=== PATIENT | female | born 2000 | race American Indian/Alaskan Native ===

== ENCOUNTER 2018-07-12 11:19 | Emergency (ER) | payer SELFPAY ==
--- NOTE | 2018-07-12 12:25 | ER ---
Nurse's Notes [facility] Name: Yessica Polk Age: 17 yrs Sex: Female : 2000 Arrival Date: 07/12/2018 Time: 11:23 Bed Waiting Private MD: Diagnosis: Presentation: 07/12 11:39 Presenting complaint: Patient states: having swelling to ankles for 3 days, eyes have iw been hurting, and has headaches sometimes. Transition of care: patient was not received from another setting of care. Onset of symptoms was July 09, 2018. Risk Assessment: Do you want to hurt yourself or someone else? Patient reports no desire to harm self or others. Initial Sepsis Screen: Does the patient meet any 2 criteria? No. Patient's initial sepsis screen is negative. Does the patient have a suspected source of infection? No. Patient's initial sepsis screen is negative. Care prior to arrival: None. 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 - Social history:: Smoking status: Patient/guardian denies using tobacco. - Ebola Screening: : Patient negative for fever greater than or equal to 101.5 degrees Fahrenheit, and additional compatible Ebola Virus Disease symptoms Patient denies exposure to infectious person Patient denies travel to an Ebola-affected area in the 21 days before illness onset No symptoms or risks identified at this time. Vital Signs: 11:40 BP 132 / 79; Pulse 93; Resp 16; Temp 98.2; Pulse Ox 99% on R/A; Weight 81.65 kg; Height iw 5 ft. 4 in. (162.56 cm); Pain 0/10; 11:40 Body Mass Index 30.90 (81.65 kg, 162.56 cm) ED Course: 11:23 Patient arrived in ED. ss4 11:38 [facility] snw 11:38 Chirag Yadav MD is Attending Physician. snw 11:40 Triage completed. iw 11:41 Arm band placed on. iw 12:15 Neo Garcia LVN is Primary Nurse. em Administered Medications: No medications were administered Outcome: 12:24 Eloped from waiting room, before seeing physician Time discovered patient gone: July 122018 at 12:25 12:25 Patient left the ED. em Signatures: Netta Davis, CORPORATE TREASURY ANALYST-C CORPORATE TREASURY ANALYST-Csnw Neo Garcia LVN LVN em Ivon Liu, RN RN Jenn Saunders ss4
[2018-07-12 12:30] VITALS: BP 132/79; TEMP 98.2; O2SAT 99
== END 2018-07-12 12:25 | disposition left against medical advice (07) ==
LOC: ER 11:19
DX: M25.472 Effusion, left ankle (principal); M25.471 Effusion, right ankle; Z53.21 Procedure and treatment not carried out due to patient leaving prior to being seen by health care provider
CPT/HCPCS: 99281

== ENCOUNTER 2020-06-29 18:55 | Emergency (ER) | payer OTHER, SELFPAY ==
--- NOTE | 2020-06-29 21:33 | EDPHYS ---
Physician Documentation [facility] Name: Yessica Polk Age: 19 yrs Sex: Female : 2000 Arrival Date: 06/29/2020 Time: 18:58 Bed 7 Private MD: ED Physician Venu Skaggs HPI: 06/29 20:13 This 19 yrs old Other Female presents to ER via Ambulatory with complaints of Foot rn Swelling. 20:13 The patient presents with pain, swelling. The complaints affect the left and right leg. rn Context: resulted from an unknown cause. Onset: The symptoms/episode began/occurred "months ago". Modifying factors: The symptoms are alleviated by nothing. the symptoms are aggravated by nothing. Associated signs and symptoms: Pertinent positives: swelling, Pertinent negatives fever, weakness. Severity of symptoms: At their worst the symptoms were moderate, in the emergency department the symptoms are unchanged. The patient has not experienced similar symptoms in the past. The patient has not recently seen a physician. Reports , has been experiencing leg swelling since before , got worse with , does not know how far along she is. No fever or rash. + swelling to both legs equally and cramping when stretches. NO trauma.. 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 Flu vaccine is not up to date. - Social history:: Smoking status: Patient denies any tobacco usage or history of. - Family history:: not pertinent. - Hospitalizations: : No recent hospitalization is reported. ROS: 20:13 Constitutional: Negative for fever, chills, and weight loss, Eyes: Negative for injury, rn pain, redness, and discharge, Neck: Negative for injury, pain, and swelling, Cardiovascular: Negative for chest pain, palpitations Respiratory: Negative for shortness of breath, cough, wheezing, and pleuritic chest pain, Abdomen/GI: Negative for abdominal pain, nausea, vomiting, diarrhea, and constipation, MS/Extremity: Negative for injury and deformity, Skin: Negative for injury, rash, and discoloration, Neuro: Negative for headache, weakness, numbness, tingling, and seizure. Exam: 20:13 Constitutional: This is a well developed, well nourished patient who is awake, alert, rn and in no acute distress. Head/Face: Normocephalic, atraumatic. Eyes: Periorbital areas with no swelling, redness, or edema. Cardiovascular: Regular rate and rhythm. No pulse deficits. Respiratory: No increased work of breathing, no retractions or nasal flaring. Skin: Warm, dry with normal turgor. Normal color with no rashes, no lesions, and no evidence of cellulitis. MS/ Extremity: Pulses equal, no cyanosis. Neurovascular intact. Full, normal range of motion. Equal circumference. Non-pitting edema bilateral lower ext. Neuro: Awake and alert, GCS 15, oriented to person, place, time, and situation. Cranial nerves II-XII grossly intact. Motor strength 5/5 in all extremities. Sensory grossly intact. Normal gait. Vital Signs: 19:17 BP 121 / 68; Pulse 91; Resp 18 S; Temp 97.5(TE); Pulse Ox 99% on R/A; Height 5 ft. 4 ca1 in. (162.56 cm) (R); Pain 0/10; 22:00 BP 118 / 70; Pulse 88; Resp 18; Pulse Ox 99% on R/A; wh Procedures: 21:42 Ultrasound: Type: OB, performed by the emergency department physician, FHT 108, good rn movement, good fluid, images shown to mother.. MDM: 19:55 Patient medically screened. rn 21:30 Differential diagnosis: edema of . Data reviewed: vital signs, nurses notes, rn radiologic studies, doppler, and as a result, I will discharge patient. Counseling: I had a detailed discussion with the patient and/or guardian regarding: the historical points, exam findings, and any diagnostic results supporting the discharge/admit diagnosis, radiology results, the need for outpatient follow up, to return to the emergency department if symptoms worsen or persist or if there are any questions or concerns that arise at home. Special discussion: I discussed with the patient/guardian in detail that at this point there is no indication for admission to the hospital. It is understood, however, that if the symptoms persist or worsen the patient needs to return immediately for re-evaluation. 06/29 20:10 Order name: Extrem Venous W Compression Con US rn 06/29 20:10 Order name: FHT's; Complete Time: 21:53 rn Administered Medications: No medications were administered Disposition: 06/29/20 21:32 Discharged to Home. Impression: Edema, unspecified, related conditions, unspecified. - Condition is Stable. - Discharge Instructions: Edema, Peripheral Edema. - Medication Reconciliation Form, Thank You Letter, Antibiotic Education, Prescription Opioid Use form. - Follow up: Private Physician; When: As needed; Reason: Recheck today's complaints, Re-evaluation by your physician. - Problem is new. - Symptoms have improved. Signatures: Dispatcher [employer] EDMS Venu Skaggs MD MD rn Habalo, Winsy, RN RN wh Acob, Cheryl, RN RN [facility] Corrections: (The following items were deleted from the chart) 22:29 21:32 06/29/2020 21:32 Discharged to Home. Impression: Edema, unspecified; wh related conditions, unspecified. Condition is Stable. Forms are Medication Reconciliation Form, Thank You Letter, Antibiotic Education, Prescription Opioid Use. Follow up: Private Physician; When: As needed; Reason: Recheck today's complaints, Re-evaluation by your physician. Problem is new. Symptoms have improved. rn
--- NOTE | 2020-06-29 21:33 | ER ---
Nurse's Notes [facility] Name: Yessica Polk Age: 19 yrs Sex: Female : 2000 Arrival Date: 06/29/2020 Time: 18:58 Bed 7 Private MD: Diagnosis: Edema, unspecified; related conditions, unspecified Presentation: 06/29 19:17 Chief complaint: Patient states: 7-8 mos , garland leg swelling since start of ca1 . It hurts every time I stretched, I get cramps. Haven't had OB visit since because of having problems with medicaid. Coronavirus screen: Client denies travel out of the [place] in the last 14 days. At this time, the client does not indicate any symptoms associated with coronavirus-19. Ebola Screen: Patient negative for fever greater than or equal to 101.5 degrees Fahrenheit, and additional compatible Ebola Virus Disease symptoms Patient denies exposure to infectious person. Patient denies travel to an Ebola-affected area in the 21 days before illness onset. No symptoms or risks identified at this time. Initial Sepsis Screen: Does the patient meet any 2 criteria? No. Patient's initial sepsis screen is negative. Does the patient have a suspected source of infection? No. Patient's initial sepsis screen is negative. Risk Assessment: Do you want to hurt yourself or someone else? Patient reports no desire to harm self or others. Onset of symptoms was June 29, 2020. 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 Flu vaccine is not up to date. - Social history:: Smoking status: Patient denies any tobacco usage or history of. - Family history:: not pertinent. - Hospitalizations: : No recent hospitalization is reported. Screenin:00 Abuse screen: Denies threats or abuse. Denies injuries from another. Nutritional wh screening: No deficits noted. Tuberculosis screening: No symptoms or risk factors identified. Fall Risk None identified. Assessment: 20:00 General: Appears in no apparent distress. Behavior is calm, cooperative, appropriate wh for age. Pain: Denies pain. Neuro: Level of Consciousness is awake, alert, obeys commands, Oriented to person, place, time, situation, Appropriate for age. Cardiovascular: Heart tones S1 S2. Cardiovascular: Edema pitting to right ankle and left ankle. Respiratory: Airway is patent Respiratory effort is even, unlabored, Respiratory pattern is regular, symmetrical, Breath sounds are clear bilaterally. GI: Abdomen is round. : No signs and/or symptoms were reported regarding the genitourinary system. EENT: No signs and/or symptoms were reported regarding the EENT system. Derm: Skin is intact, is healthy with good turgor, Skin is pink, warm \T\ dry. normal. Musculoskeletal: Circulation, motion, and sensation intact. 22:00 Reassessment: Patient appears in no apparent distress at this time. No changes from previously documented assessment. Patient and/or family updated on plan of care and expected duration. Pain level reassessed. Patient is alert, oriented x 3, equal unlabored respirations, skin warm/dry/pink. Vital Signs: 19:17 BP 121 / 68; Pulse 91; Resp 18 S; Temp 97.5(TE); Pulse Ox 99% on R/A; Height 5 ft. 4 ca1 in. (162.56 cm) (R); Pain 0/10; 22:00 BP 118 / 70; Pulse 88; Resp 18; Pulse Ox 99% on R/A; ED Course: 18:58 Patient arrived in ED. ds1 19:20 Triage completed. ca1 19:21 Arm band placed on right wrist. ca1 19:55 Venu Skaggs MD is Attending Physician. rn 20:00 Patient has correct armband on for positive identification. Bed in low position. Call light in reach. Side rails up X 1. Pulse ox on. NIBP on. 20:08 Dante Murguia, RN is Primary Nurse. jb4 21:28 Extrem Venous W Compression [place] US In Process Unspecified. EDMS 22:15 No provider procedures requiring assistance completed. Patient did not have IV access during this emergency room visit. Administered Medications: No medications were administered Outcome: 21:32 Discharge ordered by . rn 22:15 Discharged to home ambulatory, with friend. 22:15 Condition: stable 22:15 Discharge instructions given to patient, Instructed on discharge instructions, follow up and referral plans. POC Demonstrated understanding of instructions, follow-up care, POC 22:29 Patient left the ED. Signatures: Dispatcher [employer] EDIL La Domínguez ds1 Venu Skaggs MD MD rn Bryson, James RN RN jb4 Rip Juarez RN RN Acob, Lidia RN RN ca1 Corrections: (The following items were deleted from the chart) 22:24 20:00 Cardiovascular: Edema pitting to left ankle and right ankle [facility]
[2020-06-29 22:56] VITALS: BP 121/68; TEMP 97.5; O2SAT 99
--- NOTE | 2020-06-30 08:15 | RAD REPORT ---
EXAM DESCRIPTION: US - Extrem Venous W Compress Con - 06/29/2020 9:28 pm CLINICAL HISTORY: ;Pain;Swelling Bilateral leg edema and swelling. COMPARISON: No comparisons TECHNIQUE: Real-time sonographic interrogation of the left and right lower extremity deep venous sys tems was performed. FINDINGS: Normal compressibility, flow augmentation, phasic flow and spontaneous flow is identified in both the left and right lower extremity deep venous systems. IMPRESSION: No sonographic evidence of left or right lower extremity deep venous thrombosis.
== END 2020-06-29 22:29 | disposition home or self-care (01) ==
LOC: ER 18:55
DX: O12.03 Gestational edema, third trimester (principal); Z3A.00 Weeks of gestation of pregnancy not specified
CPT/HCPCS: 93970; 99283

== ENCOUNTER 2020-09-06 09:16 | Emergency (ER) | payer SELFPAY ==
--- OUTSIDE RECORDS SUMMARY | 2020-09-06 09:20 | XMS REPORT | Continuity of Care Document ---
:2000 Author Organization [facility] t Address [address] [place] [address] Care Team Providers Name Role Phone Asked, Pcp Primary Care Physician Unavailable Yoel Art MD Attending Clinician Provider Attending Clinician Unavailable MD YOEL ART Attending Clinician Unavailable Ultrasound Attending Clinician Unavailable Katrina Belle Attending Clinician RUBENS Admitting Clinician Unavailable MD YOEL ART Admitting Clinician Unavailable Payers Payer Name Policy Policy Effective Expiration Source Type Number Date Date [facility] MEDICAID[place]ALTH[place]ARE [id number] 2020 [facility] STAR 00:00:00 Sikhism [id number] 2020-Present O Problems Condition Condition Condition Status Onset Resolution Last Treating Co mments Source Name Details Category Date Date Treatment Clinician Date Vaginal Vaginal Disease Active [place] delivery delivery 07-20 Method i 00:00: st 00 Outcome of Outcome of Disease Active [place] delivery, delivery, 07-20 Meth lexi single single 00:00: st liveborn liveborn 00 38 weeks 38 weeks Disease Active [place] gestation gestation 07-20 Meth lexi of of 00:00: st 00 Allergies, Adverse Reactions, Alerts This patient has no known allergies or adverse reactions. Family History Family Member Diagnosis Comments Start Date Stop Date Source Other No Known Problems Vickey Sikhism Paternal grandfather No Known Problems Vickey Sikhism Paternal grandmother No Known Problems Vickey Sikhism Natural sister No Known Problems Curtis carson Sikhism Natural brother No Known Problems Carlin milton Sikhism Natural father No Known Problems Curtis carson Sikhism Maternal grandfather No Known Problems Hurd Sikhism Maternal grandmother No Known Problems Vickey Dillon Natural mother Diabetes [facility] thodist Social History Social Habit Start Date Stop Date Quantity Comments [facility] Drinks [facility] Alcohol Binge Tobacco use and 2020-07-23 2020-07-23 Never used Vickey Acevedo ethodist exposure 00:00:00 00:00:00 Alcohol intake 2020-07-23 2020-07-23 Lifetime Vickey Gomes thodist 00:00:00 00:00:00 non-drinker (finding) History SDOH 2020-07-20 2020-07-20 1 [place] Meth odist Alcohol Frequency 00:00:00 00:00:00 Sex Ass[birth year] At [birth year] Vickey Acevedo ethodist 00:00:00 00:00:00 Smoking Status Start Date Stop Date Source Never smoker Vickey Kathleenis t Medications Ordered Filled Start Stop Current Ordering Indication Dosage Frequency Signature Comments Components Source Medication Medication Date Date Medication? Clinician (SIG) Name Name ibuprofen 2020- No 800mg Q8H Take 1 [place] (ADVIL) 800 07-20 tablet Metho di MG tablet 00:00: 23:59 ([address] 00 :00 total) by mouth every 8 (eight) hours as needed for mild pain or moderate pain for up to 30 days. docusate 2020- No 100mg Q.5D Take 1 [place] sodium 07-20 capsule Methodi (Colace) 00:00: 23:59 ([address] 100 MG 00 :00 total) by capsule mouth 2 (two) times a day for 30 days. ondansetron 2020- No 8mg Q8H Take 1 Curtis ston ODT 07-20- tablet (8 Methodi (ZOFRAN-ODT 00:00: 23:59 mg total) st ) 8 MG 00 :00 by mouth disintegrat every 8 ing tablet (eight) hours as needed for nausea or vomiting for up to 30 days. ferrous 2020- No 325mg QD Take 1 [place] sulfate 325 07-20 tablet Metho di (65 FE) MG 00:00: 23:59 ([address] EC tablet 00 :00 total) by mouth daily with breakfast for 30 days. Vital Signs Vital Name Observation Time Observation Value Comments Source Systolic blood 2020-07-21 08:10:00 118 mm[Hg] Victor Manuel n Sikhism pressure Diastolic blood 2020-07-21 08:10:00 56 mm[Hg] Nannette on Sikhism pressure Heart rate 2020-07-21 08:10:00 63 /min Vickey Dillon Body temperature 2020-07-21 08:10:00 37 Majo Bernadette ton Sikhism Respiratory rate 2020-07-21 08:10:00 18 /min Bernadette Kathleenist Oxygen saturation in 2020-07-21 08:10:00 99 /min Vickey Dillon Arterial blood by Pulse oximetry Body height 2020-07-19 23:17:00 162.6 cm Vickey Dillon Body weight 2020-07-19 23:17:00 58.968 kg Vickey Dillon BMI 2020-07-19 23:17:00 22.31 kg/m2 Vickey Dillon Procedures Procedure Date / Time Performed Performing Clinician Sour e COVID-19 QUALITATIVE 2020-07-20 00:17:00 Conrad Art RT-PCR Yoel HC COMPLETE BLD COUNT 2020-07-20 00:17:00 Conrad Artist W/AUTO DIFF Yoel HEPATITIS B SURFACE 2020-07-20 00:17:00 Conrad Art ANTIGEN Yoel SYPHILIS TREPONEMA 2020-07-20 00:17:00 Conrad Art SCREEN WITH RPR Yoel CONFIRMATION (REVERSE ALGORITHM) TYPE AND SCREEN, 2020-07-20 00:17:00 Conrad Art Me thodist OBSTETRICAL PATIENT Yoel RUBELLA AB IGG 2020-07-20 00:17:00 Conrad Art Met kolby Diallo Encounters Start End Encounter Admission Attending Care Care Encounter Source Date/Time Date/Time Type Type Clinicians Facility Department ID 2020-07-19 2020-07-21 Inpatient RUBENS [facility] [id number] Vickey 00:00:00 00:00:00 CONRAD [address] 2020-07-13 2020-07-13 Kettle Room Helper Ultrasound, [facility] [id number] 08:14:46 09:29:46 Visit [facility] TARIFF SUPERVISOR [id number] REGIONAL [id number] MATERNAL [id number] & CHILD 369 [facility] 2020-07-13 2020-07-13 Case Bhavin SANAM [id number] 00:00:00 00:00:00 Management Roshunda R TARIFF SUPERVISOR [id number] REGIONAL [id number] MATERNAL [id number] & CHILD 107 [facility] 2020-07-13 2020-07-13 [facility] Elmer Delcid [facility] [id number] 00:00:00 00:00:00 Roshunda R TARIFF SUPERVISOR [id number] REGIONAL [id number] MATERNAL [id number] & CHILD 107 [facility] 2020-07-12 2020-07-12 Routine Bhavin [facility] [id number] 12:54:42 13:12:23 Roshunda R TARIFF SUPERVISOR [id number] Visit REGIONAL [id number] MATERNAL [id number] & CHILD 107 [facility] 2020-07-10 2020-07-10 Telephone SANAM Delcid [id number] 00:00:00 00:00:00 Roshunda R TARIFF SUPERVISOR [id number] REGIONAL [id number] MATERNAL [id number] & CHILD 107 [facility] 2020-07-06 2020-07-06 [place] Bhavin [facility] [id number] 00:00:00 00:00:00 Roshunda R TARIFF SUPERVISOR [id number] REGIONAL [id number] MATERNAL [id number] & CHILD 107 [facility] 2020-07-05 2020-07-05 Initial Bhavin [facility] [id number] 13:45:34 15:07:20 Roshunda R TARIFF SUPERVISOR [id number] Visit REGIONAL [id number] MATERNAL [id number] & CHILD [address] [place] [address] Results Test Description Test Time Test Comments Results Result Comments Source Type and screen, obstetrical patient 2020-07-20 01:54:00 Test Item Value Reference Range Interpretation Comme nts ABO grouping (test code = 883-9) O Rh type (test code = 00255-3) POS Antibody screen (gel) (test code = 890-4) NEG Vickey [id number]-7 (COVID-19) RNA [Presence] in Respiratory specimen by ARUN with probe [id number] 01:35:10 Test Item Value Reference Range Interpretation Comments SARS-CoV-2 (COVID-19) RNA Not detected Not-Detected [Presence] in Respiratory specimen by ARUN with probe detection (test code = 86748-9) Whether patient is employed in a healthcare setting (test code = 55975-3) Whether the patient has symptoms related to condition of interest (test code = 92530-9) Patient was hospitalized because of this condition (test code = 15791-1) Whether the patient was admitted to intensive care unit (ICU) for condition of interest (test code = 02543-1) Whether patient resides in a congregate care setting (test code = 46717-6)
[2020-09-06] MEDS ORDERED: ACETAMINOPHEN 500 MG TAB ONE (11:04)
--- NOTE | 2020-09-06 12:12 | ER ---
Nurse's Notes [facility] Name: Yessica Polk Age: 19 yrs Sex: Female : 2000 Arrival Date: 09/06/2020 Time: 09:18 Bed 14 Private MD: Diagnosis: Acute pharyngitis, unspecified Presentation: 09/06 09:31 Chief complaint: Patient states: Headache, cough, sneezing,nasal congestion, and ph nausea, symptoms began . Coronavirus screen: congestion, headache, nausea, sore throat, Client presents with at least one sign or symptom that may indicate coronavirus-19. Standard/surgical mask placed on the client. Provider contacted for isolation considerations. Ebola Screen: No symptoms or risks identified at this time. Initial Sepsis Screen: Does the patient meet any 2 criteria? No. Patient's initial sepsis screen is negative. Does the patient have a suspected source of infection? No. Patient's initial sepsis screen is negative. Risk Assessment: Do you want to hurt yourself or someone else? Patient reports no desire to harm self or others. Onset of symptoms was September 06, 2020. 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 - Social history:: Smoking status: Patient denies any tobacco usage or history of. Screenin:33 Abuse screen: Denies threats or abuse. Denies injuries from another. Nutritional ph screening: No deficits noted. Tuberculosis screening: No symptoms or risk factors identified. Fall Risk None identified. Assessment: 09:46 General: Appears in no apparent distress. comfortable, Behavior is calm, cooperative, ph appropriate for age. Pain: Complains of pain in head. Neuro: Level of Consciousness is awake, alert, obeys commands, Oriented to person, place, time, situation, Reports headache. Cardiovascular: Capillary refill < 3 seconds in bilateral fingers. Respiratory: Reports cough that is Airway is patent Respiratory effort is even, unlabored, Denies shortness of breath. GI: Reports nausea. EENT: Reports nasal congestion. Derm: Skin is intact, is healthy with good turgor, Skin is pink, warm \T\ dry. Musculoskeletal: Circulation, motion, and sensation intact. Range of motion: intact in all extremities. Vital Signs: 09:31 BP 123 / 75; Pulse 91; Resp 18; Temp 98.2; Pulse Ox 99% on R/A; Weight 83.46 kg; Height ph 5 ft. 4 in. (162.56 cm); 09:31 Body Mass Index 31.58 (83.46 kg, 162.56 cm) ph ED Course: 09:18 Patient arrived in ED. mr 09:20 Josh Wolfe PA is PHCP. [facility] 09:20 Jaycob Mg MD is Attending Physician. [facility] 09:31 Cielo Glaan, RN is Primary Nurse. ph 09:33 Triage completed. ph 09:33 Arm band placed on Patient placed in an exam room. ph 09:34 Patient has correct armband on for positive identification. Bed in low position. Call light in reach. Side rails up X 1. Pulse ox on. NIBP on. Door closed. Noise minimized. Warm blanket given. 09:47 Strep Sent. ph 09:47 Flu Sent. ph 12:30 No provider procedures requiring assistance completed. Patient did not have IV access ld1 during this emergency room visit. Administered Medications: 12:20 Drug: Decadron (dexamethasone) 10 mg Route: IM; Site: right deltoid; ll1 12:29 Follow up: Response: No adverse reaction ll1 Outcome: 12:11 Discharge ordered by . [facility] 12:30 Discharged to home ambulatory. ld1 12:30 Condition: stable 12:30 Condition: stable 12:30 Discharge instructions given to patient, Instructed on discharge instructions, follow up and referral plans. medication usage, Demonstrated understanding of instructions, follow-up care, medications, Prescriptions given X 1. 12:30 Patient left the ED. ld1 Signatures: Josh Wolfe PA PA jmm Rivera, Mary Cielo Galan, RN LES ph Clark Toledo RN RN ll1 Leena French RN RN ld1 Corrections: (The following items were deleted from the chart) 10:44 09:47 CORONAVIRUS+MR.LAB.BRZ drawn and sent. ph EDMS
--- NOTE | 2020-09-06 12:12 | EDPHYS ---
Physician Documentation [facility] Name: Yessica Polk Age: 19 yrs Sex: Female : 2000 Arrival Date: 09/06/2020 Time: 09:18 Bed 14 Private MD: ED Physician Jaycob Mg HPI: 09/06 09:31 This 19 yrs old Other Female presents to ER via Unassigned with complaints of Flu jmm Symptoms. 09:31 Onset: The symptoms/episode began/occurred gradually, 6 day(s) ago. Modifying factors: jmm The symptoms are alleviated by nothing. the symptoms are aggravated by nothing. Associated signs and symptoms: Pertinent positives: fever, rhinorrhea, sore throat, vomiting. It is unknown whether or not the patient has had similar symptoms in the past. This is a 19-year-old female no chronic medical conditions presents emerged part with complaints of cough, congestion, sore throat beginning this past . Patient states worse symptoms are headache and sinus congestion. Patient is not vaccinated for COVID-19.. 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 - Social history:: Smoking status: Patient denies any tobacco usage or history of. ROS: 09:31 Constitutional: Positive for body aches, fever. jmm 09:31 ENT: Positive for sinus congestion, sore throat. 09:31 Neuro: Positive for headache. 09:31 All other systems are negative. Exam: 09:31 Constitutional: This is a well developed, well nourished patient who is awake, alert, jmm and in no acute distress. Head/Face: atraumatic. Eyes: EOMI, no conjunctival erythema appreciated 09:31 Neck: Trachea midline, Supple Chest/axilla: Normal chest wall appearance and motion. Cardiovascular: Regular rate and rhythm. No edema appreciated Respiratory: Normal respirations, no respiratory distress appreciated Abdomen/GI: Non distended, soft Back: Normal ROM Skin: General appearance color normal MS/ Extremity: Moves all extremities, no obvious deformities appreciated, no edema noted to the lower extremities Neuro: Awake and alert, normal gait 09:31 ENT: Posterior pharynx: erythema, that is mild. Vital Signs: 09:31 BP 123 / 75; Pulse 91; Resp 18; Temp 98.2; Pulse Ox 99% on R/A; Weight 83.46 kg; Height ph 5 ft. 4 in. (162.56 cm); 09:31 Body Mass Index 31.58 (83.46 kg, 162.56 cm) ph MDM: 09:30 Patient medically screened. [facility] 12:11 Data reviewed: vital signs, nurses notes. Counseling: I had a detailed discussion with [facility] the patient and/or guardian regarding: the historical points, exam findings, and any diagnostic results supporting the discharge/admit diagnosis, lab results, the need for outpatient follow up, to return to the emergency department if symptoms worsen or persist or if there are any questions or concerns that arise at home. ED course: Patient is alert and nontoxic in appearance and emergency department. I do not appreciate any respiratory distress. Will treat with oral antibiotics for acute pharyngitis. Patient is otherwise given strict return precautions. Patient understood and agrees to plan of care.. 09/06 09:31 Order name: Flu; Complete Time: 11:04 [facility] 09/06 09:31 Order name: Strep; Complete Time: 10:56 [facility] 09/06 10:56 Order name: Throat Culture [facility] 09/06 11:39 Order name: SARS-COV-2 RT PCR; Complete Time: 11:53 [facility] Administered Medications: 12:20 Drug: Decadron (dexamethasone) 10 mg Route: IM; Site: right deltoid; ll1 12:29 Follow up: Response: No adverse reaction ll1 Disposition Summary: 09/06/20 12:11 Discharge Ordered Location: Home [facility] Condition: Stable [facility] Diagnosis - Acute pharyngitis, unspecified [facility] Followup: [facility] - With: Private Physician - When: 2 - 3 days - Reason: Recheck today's complaints, Continuance of care, Re-evaluation by your physician Discharge Instructions: - Discharge Summary Sheet [facility] - Pharyngitis [facility] Forms: - Medication Reconciliation Form [facility] - Thank You Letter [facility] - Antibiotic Education [facility] - Prescription Opioid Use [facility] - Work release form Prescriptions: - cefdinir 300 mg Oral capsule - take 1 capsule by ORAL route every 12 hours; 20 capsule; Refills: 0, Product jmarchana Selection Permitted 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 EDMS EDMS
[2020-09-06] MEDS ORDERED: dexAMETHasone 10 MG/ML VIAL ONE (12:45)
[2020-09-06 13:02] VITALS: BP 123/75; TEMP 98.2; O2SAT 99
== END 2020-09-06 12:30 | disposition home or self-care (01) ==
LOC: ER 09:16
DX: J02.9 Acute pharyngitis, unspecified (principal); Z20.822 Contact with and (suspected) exposure to COVID-19
CPT/HCPCS: 87070; 87081; 87804; 96372; 99284; J1100; U0003

== ENCOUNTER 2021-07-09 23:18 | Emergency (ER) | payer OTHER ==
--- OUTSIDE RECORDS SUMMARY | 2021-07-09 23:21 | XMS REPORT | Continuity of Care Document ---
:2000 Author Organization [facility] t Address [address] [place] [address] Care Team Providers Name Role Phone Katrina DELCID Attending Clinician Unavailable RUBENS Attending Clinician Unavailable MD VINNY ART Attending Clinician Unavailable Ultrasound Attending Clinician Unavailable Moises NAVARRO Attending Clinician Katrina Belle Attending Clinician Doctor Unassigned, Name Attending Clinician Unavailable RUBENS Admitting Clinician Unavailable MD VINNY ART Admitting Clinician Unavailable Payers Payer Name Policy Type Policy Number Effective Date Expiration Date S jerry MEDICAID PENDING PENDING 2020 00:00:00 MEDICAID [facility] [id number] 2020 00:00:00 Problems Condition Condition Condition Status Onset Resolution Last Treating Co mments Source Name Details Category Date Date Treatment Clinician Date Supervisio Supervisio Disease Active U nivconnor n of high n of high 5-26 ity of risk risk 00:00: [place] 00 Medi tiarra in third in third Branch trimester trimester Insufficie Insufficie Disease Active 2020- U nivers nt nt 5-19 ity of 00:00: [place] care in care in 00 Medical third third Branch trimester trimester Multiparit Multiparit Disease Active 2020-0 U nivers y y 5-19 ity of 00:00: [place] 00 Medical Branch Pedal Pedal Disease Active 2020- Univers edema edema 5-19 ity of 00:00: [place] 00 Medical Branch Vaginal Vaginal Disease Active Univers discharge discharge 5-19 ity of 00:00: [place] 00 Medical Branch Obesity in Obesity in Disease Active 2020-0 U nivers 5-19 ity of 00:00: [place] 00 Medical [place] BMI BMI Disease Active Univers 35.0-35.9, 35.0-35.9, 5-19 it y of adult adult 00:00: [place] 00 [facility] Family Family Disease Active Overview: Univer s history of history of 3 Formattin ity of genetic genetic 00:00: g of this [place] disorder disorder 00 note Medica l might be Branch different from the original. Patient Brother was born with cleft lip, cleft palatePat ient Cousin has down syndrome Supervisio Supervisio Disease Active U nivers n of n of 305 ity of high-risk high-risk 00:00: [place] [facility] with with Branch insufficie insufficie nt nt care, care, unspecifie unspecifie d d trimester trimester Late Late Disease Active Univers 04-21 ity of care care 00:00: [place] [facility] Maternal Maternal Disease Active Overview: Un jon varicella, varicella, 04-20 Formattin ity of non-immune non-immune 00:00: g of this [place] 00 note Medical might be Branch different from the original. Address in PP UTI in UTI in Disease Active Univers , , 04-20 [place] [address] [place] [address] Allergies, Adverse Reactions, Alerts Allergy Allergy Status Severity Reaction(s) Onset Inactive Treating Comm ents Source Name Type Date Date Clinician NO KNOWN Drug Active Univers ALLERGIE Class ity of S [facility] Social History Social Habit Start Date Stop Date Quantity Comments Source ASSERTION 2019-11-13 University of 00:00:00 [facility] Exposure to Not sure [facility] SARS-CoV-2 [facility] [place] [facility] (event) Branch Tobacco use and 2020-07-12 2020-07-12 Never used Universit y of exposure 00:00:00 00:00:00 [facility] Alcohol intake 2020-07-12 2020-07-12 Current University of 00:00:00 00:00:00 non-drinker of [facility] alcohol Branch (finding) Sex Assigned At [birth year] Universit y of 00:00:00 00:00:00 [place] [facility] Smoking Status Start Date Stop Date Source Never smoker [facility] Medical Branch Medications Ordered Filled Start Stop Current Ordering Indication Dosage Frequency Signature Comments Components Source Medication Medication Date Date Medication? Clinician (SIG) Name Name L. neli/L. Yes Take by Uni vers josé miguel/L. 5-19 mouth. ity of eunice/L. rham 19:24: [place] (AZO 20 Medical COMPLETE Branch FEMININE BALANCE ORAL) L. neil/L. Yes Take by Uni vers josé miguel/L. 5-19 mouth. ity of eunice/L. rham 19:24: [place] (AZO 20 Medical COMPLETE Branch FEMININE BALANCE ORAL) L. neil/L. Yes Take by Uni vers josé miguel/L. 5-19 mouth. ity of eunice/L. rham 19:24: [place] (AZO 20 Medical COMPLETE Branch FEMININE BALANCE ORAL) L. neil/L. Yes Take by Uni vers josé miguel/L. 5-19 mouth. ity of eunice/L. rham 19:24: [place] (AZO 20 Medical COMPLETE Branch FEMININE BALANCE ORAL) L. neil/L. Yes Take by Uni vers josé miguel/L. 5-19 mouth. ity of eunice/L. rham 19:24: [place] (AZO 20 Medical COMPLETE Branch FEMININE BALANCE ORAL) L. neil/L. Yes Take by Uni vers josé miguel/L. 5-19 mouth. ity of eunice/L. rham 19:24: [place] (AZO 20 Medical COMPLETE Branch FEMININE BALANCE ORAL) L. neil/L. Yes Take by Uni vers josé miguel/L. 5-19 mouth. ity of eunice/L. rham 19:24: [place] (AZO 20 Medical COMPLETE Branch FEMININE BALANCE ORAL) L. neil/L. Yes Take by Uni vers josé miguel/L. 5-19 mouth. ity of eunice/L. rham 19:24: [place] (AZO 20 Medical COMPLETE Branch FEMININE BALANCE ORAL) Nitrofurant Yes [id number] 100mg Take 1 Cap Univers oin&Nit. 3-14 by mouth 2 ity o f Macrocryst 00:00: (two) [place] (MACROBID) 00 times Medical 100 mg daily. Branch capsule Nitrofurant 2016-0 Yes [id number] 100mg Take 1 Cap Univers oin&Nit. 3-14 by mouth 2 ity o f Macrocryst 00:00: (two) [place] (MACROBID) 00 times Medical 100 mg daily. Branch capsule Nitrofurant 2015-0 Yes [id number] 100mg Take 1 Cap Univers oin&Nit. 3-14 by mouth 2 ity o f Macrocryst 00:00: (two) [place] (MACROBID) 00 times Medical 100 mg daily. Branch capsule Nitrofurant 2015- Yes [id number] 100mg Take 1 Cap Univers oin&Nit. 3-14 by mouth 2 ity o f Macrocryst 00:00: (two) [place] (MACROBID) 00 times Medical 100 mg daily. Branch capsule Nitrofurant 2015- Yes [id number] 100mg Take 1 Cap Univers oin&Nit. 3-14 by mouth 2 ity o f Macrocryst 00:00: (two) [place] (MACROBID) 00 times Medical 100 mg daily. Branch capsule Nitrofurant Yes [id number] 100mg Take 1 Cap Univers oin&Nit. 3-14 by mouth 2 ity o f Macrocryst 00:00: (two) [place] (MACROBID) 00 times Medical 100 mg daily. Branch capsule Nitrofurant 2015- Yes [id number] 100mg Take 1 Cap Univers oin&Nit. 3-14 by mouth 2 ity o f Macrocryst 00:00: (two) [place] (MACROBID) 00 times Medical 100 mg daily. Branch capsule Nitrofurant 2015- Yes [id number] 100mg Take 1 Cap Univers oin&Nit. 3-14 by mouth 2 ity o f Macrocryst 00:00: (two) [place] (MACROBID) 00 times Medical 100 mg daily. Branch capsule Nitrofurant 2015-0 Yes [id number] 100mg Take 1 Cap Univers oin&Nit. 3-14 by mouth 2 ity o f Macrocryst 00:00: (two) [place] (MACROBID) 00 times Medical 100 mg daily. Branch capsule [id number] 2015- Yes [id number] 1{each} Take 1 Univers Cbn&Gluc-FA 3-02 Each by ity o f -DSS-DHA 00:00: mouth [place] (CITRANATAL 00 daily. Medica l ASSURE) Branch 35-1-50-300 mg Cmpk combo pack [id number] 2015- Yes [id number] 1{each} Take 1 Univers Cbn&Gluc-FA 3-02 Each by ity o f -DSS-DHA 00:00: mouth [place] (CITRANATAL 00 daily. Medica l ASSURE) Branch 35-1-50-300 mg Cmpk combo pack [id number] 2015- Yes [id number] 1{each} Take 1 Univers Cbn&Gluc-FA 3-02 Each by ity o f -DSS-DHA 00:00: mouth [place] (CITRANATAL 00 daily. Medica l ASSURE) Branch 35-1-50-300 mg Cmpk combo pack [id number] 2015- Yes [id number] 1{each} Take 1 Univers Cbn&Gluc-FA 3-02 Each by ity o f -DSS-DHA 00:00: mouth [place] (CITRANATAL 00 daily. Medica l ASSURE) Branch 35-1-50-300 mg Cmpk combo pack [id number] 2015- Yes [id number] 1{each} Take 1 Univers Cbn&Gluc-FA 3-02 Each by ity o f -DSS-DHA 00:00: mouth [place] (CITRANATAL 00 daily. Medica l ASSURE) Branch 35-50-300 mg Cmpk combo pack [id number] 2015- Yes [id number] 1{each} Take 1 Univers Cbn&Gluc-FA 3-02 Each by ity o f -DSS-DHA 00:00: mouth [place] (CITRANATAL 00 daily. Medica l ASSURE) Branch 35-1-50-300 mg Cmpk combo pack [id number] 2015- Yes [id number] 1{each} Take 1 Univers Cbn&Gluc-FA 3-02 Each by ity o f -DSS-DHA 00:00: mouth [place] (CITRANATAL 00 daily. Medica l ASSURE) Branch 35-1-50-300 mg Cmpk combo pack [id number] 2015- Yes [id number] 1{each} Take 1 Univers Cbn&Gluc-FA 3-02 Each by ity o f -DSS-DHA 00:00: mouth [place] (CITRANATAL 00 daily. Medica l ASSURE) Branch 35-1-50-300 mg Cmpk combo pack [id number] 2016-0 Yes [id number] 1{each} Take 1 Univers Cbn&Gluc-FA 3-02 Each by haven zavaleta -DSS-DHA 00:00: mouth [place] (CITRANATAL 00 daily. Medica l ASSURE) [place] 35-1-50-300 mg Cmpk combo pack Immunizations Ordered Filled Immunization Date Status Comments Sour e Immunization Name Name Influenza Virus 2015-04-18 Completed Universit y of Vaccine Quad IM 3+ 00:00:00 [facility] Influenza Virus 2015-04-18 Completed Universit y of Vaccine Quad IM 3+ 00:00:00 [facility] Influenza Virus 2015-04-18 Completed Universit y of Vaccine Quad IM 3+ 00:00:00 [facility] Influenza Virus 2015-04-18 Completed Universit y of Vaccine Quad IM 3+ 00:00:00 [facility] Influenza Virus 2015-04-18 Completed Universit y of Vaccine Quad IM 3+ 00:00:00 [facility] Influenza Virus 2015-04-18 Completed Universit y of Vaccine Quad IM 3+ 00:00:00 [facility] Influenza Virus 2015-04-18 Completed Universit y of Vaccine Quad IM 3+ 00:00:00 [facility] Influenza Virus 2015-04-18 Completed Universit y of Vaccine Quad IM 3+ 00:00:00 [facility] Influenza Virus 2015-04-18 Completed Universit y of Vaccine Quad IM 3+ 00:00:00 [facility] Vital Signs Vital Name Observation Time Observation Value Comments Source Systolic blood 2020-07-12 18:03:00 136 mm[Hg] Univer sity of pressure [facility] Diastolic blood 2020-07-12 18:03:00 82 mm[Hg] Unive rsity of pressure [facility] Heart rate 2020-07-12 18:03:00 86 /min [facility] Body temperature 2020-07-12 18:03:00 36.83 Majo [facility] Respiratory rate 2020-07-12 18:03:00 16 /min [facility] Body height 2020-07-12 18:03:00 162.6 cm [facility] Body weight 2020-07-12 18:03:00 94.257 kg Universi ty of [place] [facility] BMI 2020-07-12 18:03:00 35.67 kg/m2 Universi ty of [place] [facility] Systolic blood 2020-07-12 18:03:00 136 mm[Hg] Univer sity of pressure [place] [facility] Diastolic blood 2020-07-12 18:03:00 82 mm[Hg] Unive rsity of pressure [place] [facility] Heart rate 2020-07-12 18:03:00 86 /min Universi ty of [place] [facility] Body temperature 2020-07-12 18:03:00 36.83 Majo Univ ersity of [place] [facility] Respiratory rate 2020-07-12 18:03:00 16 /min Univ ersity of [place] [facility] Body height 2020-07-12 18:03:00 162.6 cm Universi ty of [place] [facility] Body weight 2020-07-12 18:03:00 94.257 kg Universi ty of [place] [facility] BMI 2020-07-12 18:03:00 35.67 kg/m2 Universi ty of [place] [facility] Systolic blood 2020-07-05 19:08:00 116 mm[Hg] Univer sity of pressure [place] [facility] Diastolic blood 2020-07-05 19:08:00 75 mm[Hg] Unive rsity of pressure [place] [facility] Heart rate 2020-07-05 19:08:00 89 /min Universi ty [facility] [place] [facility] Body temperature 2020-07-05 19:08:00 36.61 Majo Univ ersity of [place] [facility] Respiratory rate 2020-07-05 19:08:00 16 /min Univ ersity of [place] [facility] Body height 2020-07-05 19:08:00 162.6 cm Universi ty of [place] [facility] Body weight 2020-07-05 19:08:00 94.348 kg Universi ty of [place] [facility] BMI 2020-07-05 19:08:00 35.70 kg/m2 Universi ty of [place] [facility] Systolic blood 2020-07-05 19:08:00 116 mm[Hg] Univer sity of pressure [place] [facility] Diastolic blood 2020-07-05 19:08:00 75 mm[Hg] Unive rsity of pressure [place] [facility] Heart rate 2020-07-05 19:08:00 89 /min [facility] Body temperature 2020-07-05 19:08:00 36.61 Majo [facility] Respiratory rate 2020-07-05 19:08:00 16 /min [facility] Body height 2020-07-05 19:08:00 162.6 cm [facility] Body weight 2020-07-05 19:08:00 94.348 kg [facility] BMI 2020-07-05 19:08:00 35.70 kg/m2 [facility] Procedures Procedure Date / Time Performed Performing Clinician Sourc e POCT URINALYSIS 2020-07-12 18:06:00 Jai Delcid [facility] GLUCOSE 1 HOUR POST 2020-07-05 20:53:00 [facility] CBC WITH DIFF 2020-07-05 20:53:00 Jai Delcid [facility] RUBELLA SCREEN IGG 2020-07-05 20:53:00 Jai Delcid [facility] VZV ANTIBODY SCREEN 2020-07-05 20:53:00 [facility] HEPATITIS B SURFACE 2020-07-05 20:53:00 [facility] ANTIGEN [facility] GC & CHLAMYDIA 2020-07-05 20:53:00 Jai Delcid [facility] AMPLIFIED ASSAY [facility] HIV 1/2 AG-AB WITH 2020-07-05 20:53:00 Jai Delcid [facility] REFLEX [facility] GALV ONLY - SYPHILIS 2020-07-05 20:53:00 Jai Delcid [facility] IGG/IGM [facility] HB ABO GROUPING 2020-07-05 20:30:00 Jai Delcid [facility] POCT URINALYSIS W/O 2020-07-05 19:11:00 [facility] SPECIFIC GRAVITY [facility] POCT TEST 2020-07-05 19:10:[address] [facility] ASSIGNMENT OF BENEFITS 2020-07-05 18:00:51 Doctor Unassigned, No [facility] Encounters Start End Encounter Admission Attending Care Care Encounter Source Date/Time Date/Time Type Type Clinicians Facility Department ID 2020-08-02 2020-08-02 Outpatient Katrina DELCID [facility] [id number] Univers 10:45:00 10:45:00 JAI [id number] ity o f [facility] 2020-08-02 2020-08-02 Outpatient Katrina DELCID [facility] [id number] Univers 10:45:00 10:45:00 JAI han [facility] 2020-07-27 2020-07-27 Outpatient P [facility] [id number] Univers 13:00:00 13:00:00 [id number] [facility] 2020-07-19 2020-07-21 Inpatient [facility] [id number] [place] [address] 00:00:00 00:00:00 WILIAN [address] 2020-07-19 2020-07-19 Outpatient Katrina DELCID [facility] [id number] Univers 13:45:00 13:45:00 JAI [id number] haven o [facility] 2020-07-19 2020-07-19 Outpatient Katrina DELCID [facility] [id number] Univers 13:45:00 13:45:00 JAI han [facility] 2020-07-13 2020-07-13 Customer Energy Specialist Ultrasound, [facility] [id number] 08:14:46 09:29:46 Visit Ang-m CONFIGURATION RELEASE MANAGER [id number] [facility] [id number] MATERNAL [id number] & CHILD [address] [place] [address] 2020-07-13 2020-07-13 Customer Energy Specialist Ultrasound, [facility] 1.2 .[id number] [facility] 08:14:46 09:29:46 Visit Radha De Leon CONFIGURATION RELEASE MANAGER [id number] ity of REGIONAL [id number] Pierre as MATERNAL [id number] Med ical & CHILD 369 [facility] 2020-07-13 2020-07-13 Outpatient R [facility] [id number] Univers 08:00:00 08:00:00 [id number] ity [facility] 2020-07-13 2020-07-13 Outpatient P [facility] [id number] Univers 08:00:00 08:00:00 ity [facility] 2020-07-13 2020-07-13 Outpatient P [facility] [id number] Univers 08:00:00 08:00:00 ity [facility] 2020-07-13 2020-07-13 SANAM Rose [id number] Univers 00:00:00 00:00:00 Roshunda R CONFIGURATION RELEASE MANAGER [id number] ity of REGIONAL [id number] Pierre as MATERNAL [id number] Med ical & CHILD [address] [place] [address] 2020-07-13 2020-07-13 Case SANAM Delcid [id number] 00:00:00 00:00:00 Management Roshunda R CONFIGURATION RELEASE MANAGER 350.1.13.10 REGIONAL 4.2.7.2.686 MATERNAL [id number] & CHILD [address] [place] [address] 2020-07-13 2020-07-13 SANAM Rose [id number] 00:00:00 00:00:00 Roshunda R CONFIGURATION RELEASE MANAGER 350.1.13.10 REGIONAL 4.2.7.2.686 MATERNAL [id number] & CHILD 107 [facility] 2020-07-13 2020-07-13 SANAM Cabrera [id number] Univers 00:00:00 00:00:00 Management Roshunda R CONFIGURATION RELEASE MANAGER 350.1.13.10 ity of REGIONAL 4.2.7.2.686 Pierre as MATERNAL [id number] Med ical & CHILD 107 [facility] 2020-07-12 2020-07-12 Enedina Finneye, [facility] [id number] Univers 12:54:42 13:12:23 Roshunda R CONFIGURATION RELEASE MANAGER 350.1.13.10 ity of Visit REGIONAL 4.2.7.2.686 Pierre as MATERNAL [id number] [facility] ical & CHILD [address] [place] [address] 2020-07-12 2020-07-12 Routine Delcid, [facility] [id number] 12:54:42 13:12:23 Roshunda R CONFIGURATION RELEASE MANAGER 350.1.13.10 Visit REGIONAL 4.2.7.2.686 MATERNAL [id number] & CHILD [address] [place] [address] 2020-07-12 2020-07-12 Outpatient R VEENA [facility] [id number] Univers 12:45:00 12:45:[address] [facility] 2020-07-10 2020-07-10 Telephone Veena [facility] [id number] Univers 00:00:00 00:00:00 Roshunda R CONFIGURATION RELEASE MANAGER 350.1.13.10 ity of REGIONAL [id number] Pierre as MATERNAL [id number] [facility] ical & CHILD [address] [place] [address] 2020-07-10 2020-07-10 [place] Veena [facility] [id number] 00:00:00 00:00:00 Roshunda R CONFIGURATION RELEASE MANAGER 350.1.13.10 REGIONAL [id number] MATERNAL [id number] & CHILD [address] [place] [address] 2020-07-06 2020-07-06 Telephone Veena [facility] [id number] Univers 00:00:00 00:00:00 Roshunda R CONFIGURATION RELEASE MANAGER 350.1.13.10 ity of REGIONAL 4.2.7.2.686 Pierre as MATERNAL [id number] Med ical & CHILD [address] [place] [address] 2020-07-06 2020-07-06 [facility] [id number] 00:00:00 00:00:00 Roshunda R CONFIGURATION RELEASE MANAGER 350.1.13.10 REGIONAL 4.2.7.2.686 MATERNAL [id number] & CHILD 107 [facility] 2020-07-05 2020-07-05 Initial Veena [facility] [id number] Univers 13:45:34 15:07:20 Roshunda R CONFIGURATION RELEASE MANAGER 350.1.13.10 ity of Visit REGIONAL 4.2.7.2.686 Pierre as MATERNAL [id number] [facility] & CHILD [address] [place] [address] 2020-07-05 2020-07-05 Initial Delcid [facility] [id number] 13:45:34 15:07:20 Roshunda R CONFIGURATION RELEASE MANAGER 350.1.13.10 Visit REGIONAL [id number] MATERNAL [id number] & CHILD 107 [facility] 2020-07-05 2020-07-05 Outpatient R VEENA [facility] [id number] Univers 14:00:00 14:00:[address] o [address] [facility] 2020-07-05 2020-07-05 Orders Doctor LUAN [id number] Univers 00:00:00 00:00:00 Only Unassigned, DAYANA 350.1.13.10 ity of [place] [facility] 4.2.7.2.686 Pierre as [id number] [address] Results Test Description Test Time Test Comments Results Result Comments Source SARS-CoV-2 (COVID-19) RNA [Presence] in Respiratory sp ecimen by 2020-07-20 01:35:10 ARUN with probe detection Test Item Value Reference Range Interpretation Comme nts SARS-CoV-2 (COVID-19) RNA [Presence] in Respiratory Not detected No t-Detected specimen by ARUN with probe detection (test code = 99665-9) Whether patient is employed in a healthcare setting (test code = 15652-7) Whether the patient has symptoms related to condition of interest (test code = 30956-7) Patient was hospitalized because of this condition (test code = 81236-8) Whether the patient was admitted to intensive care unit (ICU) for condition of interest (test code = 54781-0) Whether patient resides in a congregate care setting (test code = 55357-1) POCT URINALYSIS W SPECIFIC [id number] 18:06:00 Test Item Value Reference Range Interpretation Comments POCT U SP GRAV (test code = 3255) . 1.005-1.025 POCT PH U (test code = 3254) . 5-8 POCT U LEUK EST (test code = 3263) . Negative - Negative POCT U NIT (test code = 3262) . Negative - Negative POCT U PROT (test code = 3259) trace Negative - Negative POCT U GLU (test code = 3256) neg Negative - Negative POCT U KETONE (test code = 3258) . Negative - Negative POCT U UROBILI (test code = 3260) . 0.2-1 POCT U BILI (test code = 3261) . Negative - Negative POCT U BLD (test code = 3257) . Negative - Negative POCT U COLOR (test code = 3266) POCT U APPEAR (test code = 3267) Lab Interpretation (test code = Normal 25357-0) [facility] CHLAMYDIA AMPLIFIED [id number] 17:39:54 Test Item Value Reference Range Interpretation Comments C. trachomatis Nucleic Negative Negative Acid (test code = 18797-8) N. gonorrhoeae Nucleic Negative Negative Acid (test code = 02252-0) AISHA (test code = AISHA) Reliable results are dependent on adequate specimen collection. ? A positive result obtained from a patient after therapeutic treatment cannot be interpreted as indicating the presence of viable organisms. ?For patients on whom a false positive result may have adverse psychosocial impact, retesting is advised. Indeterminate: Unable to generate a valid test result on this specimen. ?Please submit a new specimen for repeat testing if clinically indicated. Chlamydia trachomatis/Neisseria gonorrhoeae nucleic acid amplification testing (NAAT) has not been validated for medico-legal specimens (sexual abuse in sukh-pubertal and pre-pubertal children, sexual assault, and legal cases). ?Culture for Chlamydia trachomatis and/or Neisseria gonorrhoeae from clinically appropriate sites is the method of choice in these cases. ? Results from this testing should be interpreted in conjunction with other laboratory and clinical data available to the clinician.For females in general, a urine specimen is a second-line option because it is considered less sensitive than a cervical swab for Chlamydia trachomatis and/or Neisseria gonorrhoeae NAAT. Lab Interpretation Normal (test code = 89604-7) [facility] [id number] 16:04:02 Test Item Value Reference Range Interpretation Comments VZV IgG antibody Negative Negative (test code = 56365-3) AISHA (test code = AISHA) Positive - Indicates the patient was exposed to VZV through infection or vaccination.Negative - Indicates the patient could be susceptible to VZV infection.Equivocal - A second specimen should be sent for testing. [facility] SCREEN (VITALY) [id number] 16:04:02 Test Item Value Reference Range Interpretation Comments Rubella screen IgG Positive Negative (test code = 6565807163) AISHA (test code = AISHA) Positive - Indicates the patient was exposed to Rubella through infection or vaccination.Negative - Indicates the patient could be susceptible to Rubella infection.Equivocal - A second specimen should be sent. [facility] - SYPHILIS [id number] 14:27:48 Test Item Value Reference Range Interpretation Comments Syphilis IgG/IgM (test Non-reactive Non-reactive code = 81617-7) AISHA (test code = AISHA) Non-reactive - No serologic evidence of T. pallidum infection. Cannot exclude incubating or early syphilis. Submit a second specimen in 2-4 weeks if syphilis is clinically suspected. Equivocal - Further testing to follow. Reactive - Further testing to follow. Lab Interpretation (test Normal code = 53966-7) [facility] AG-AB WITH [id number] 06:36:14 Test Item Value Reference Range Interpretation Comments HIV Negative Negative Semi-quantitative (test code = 38970-6) AISHA (test code = Non-reactive for HIV-1 AISHA) antigen and HIV-1/HIV-2 antibodies. ?No laboratory evidence of HIV infection. ?Repeat in 2-4 weeks if acute HIV infection is suspected. [facility] WORK[facility], BLOOD [id number] 06:19:22 Test Item Value Reference Range Interpretation Comments ABO & RH (test code O POSITIVE Performe d at [facility] = 20) [facility] [address] [facility] s [id number] Free: [phone] A No. [id number] IAT (test code = Negative Performed a t [facility] 1185) [facility] [address] [facility] s [id number] Free: [phone] A No. [id number] [facility] CenterHEPAT[facility] B SURFACE [id number] 04:47:41 Test Item Value Reference Range Interpretation Comments HBsAg Semi-Quantitative (test code = Negative Negative 5195-3) [facility] 1 HOUR POST [id number] 04:46:20 Test Item Value Reference Range Interpretation Comments GLUC 1 HR (test code = 0006859528) 134 mg/dL 120-170 Lab Interpretation (test code = Normal 64952-5) [facility] CenterCB WITH [id number] 04:19:59 Test Item Value Reference Range Interpretation Comments WBC (test code = See_Comment H [Automated 3590-2) message] The sy stem which generated this result transmitted reference range : 4.30 - 11.10 10*3/?L. The reference range was not used to interpret this result as normal/abnormal . RBC (test code = See_Comment [Automated 919-8) message] The sy stem which generated this result transmitted reference range : 3.93 - 5.25 10*6/?L. The reference range was not used to interpret this result as normal/abnormal . HGB (test code = 12.2 g/dL 11.6-15.0 718-7) HCT (test code = 37.6 % 35.7-45.2 4544-3) MCV (test code = 87.2 fL 80.6-95.5 787-2) MCH (test code = 28.3 pg 25.9-32.8 785-6) MCHC (test code = 32.4 g/dL 31.6-35.1 786-4) RDW-SD (test code = 42.2 fL 39.0-49.9 83851-1) RDW-CV (test code = 13.3 % 12.0-15.5 788-0) PLT (test code = See_Comment [Automated 777-3) message] The sy stem which generated this result transmitted reference range : 166 - 358 10*3/ ?L. The reference r wilbert was not used to interpret this result as normal/abnormal . MPV (test code = 10.4 fL 9.5-12.9 35442-9) NRBC/100 WBC (test See_Comment [Automat ed code = 3677735725) message] The system which generated this result transmitted reference range : 0.0 - 10.0 /100 WBCs. The refer ence range was not u sed to interpret th is result as normal/abnormal . NRBC x10^3 (test code See_Comment [Auto mated = [id number]) message] The s ystem which generated this result transmitted reference range : 10*3/?L. The reference range was not used to interpret this result as normal/abnormal . GRAN MAT (NEUT) % 76.7 % (test code = 770-8) IMM GRAN % (test code 1.50 % = 8845356696) LYMPH % (test code = 14.6 % 736-9) MONO % (test code = 6.1 % 5905-5) EOS % (test code = 0.8 % 713-8) BASO % (test code = 0.3 % 706-2) GRAN MAT x10^3(ANC) 9.86 10*3/uL 1.88-7.09 H (test code = 4601538982) IMM GRAN x10^3 (test 0.19 10*3/uL 0.00-0.06 H code = 6406342710) LYMPH x10^3 (test code 1.88 10*3/uL 1.32-3.29 = 731-0) MONO x10^3 (test code 0.79 10*3/uL 0.33-0.92 = 742-7) EOS x10^3 (test code = 0.10 10*3/uL 0.03-0.39 711-2) BASO x10^3 (test code 0.04 10*3/uL 0.01-0.07 = 704-7) Lab Interpretation Abnormal (test code = 84870-2) [facility] [id number] 19:11:00 Test Item Value Reference Range Interpretation Comments POCT PREG (test code = 1605) Positive On board controls acceptable with C Yes Line (test code = 3574) POCT PREG LOT # (test code = 3575) POCT PREG TEST DATE (test code = 3576) Lab Interpretation (test code = Normal 90184-8) [facility] URINALYSIS W/O SPECIFIC [id number] 19:11:00 Test Item Value Reference Range Interpretation Comments POCT PH U (test code = 3254) 7 mg/dl 5-8 POCT U LEUK EST (test code = trace Negative - Negative 3263) POCT U NIT (test code = 3262) neg Negative - Negative POCT U PROT (test code = 3259) trace Negative - Negative POCT U GLU (test code = 3256) neg Negative - Negative POCT U KETONE (test code = 3258) neg Negative - Negative POCT U BLD (test code = 3257) neg Negative - Negative Lab Interpretation (test code = Abnormal 88002-5) [facility] CenterPOCT [id number] 19:11:00 Test Item Value Reference Range Interpretation Comments POCT PREG (test code = 1605) Positive On board controls acceptable with C Yes Line (test code = 3574) POCT PREG LOT # (test code = 3575) POCT PREG TEST DATE (test code = 3576) Lab Interpretation (test code = Normal 45729-3) [facility] URINALYSIS W/O SPECIFIC [id number] 19:11:00 Test Item Value Reference Range Interpretation Comments POCT PH U (test code = 3254) 7 mg/dl 5-8 POCT U LEUK EST (test code = trace Negative - Negative 3263) POCT U NIT (test code = 3262) neg Negative - Negative POCT U PROT (test code = 3259) trace Negative - Negative POCT U GLU (test code = 3256) neg Negative - Negative POCT U KETONE (test code = 3258) neg Negative - Negative POCT U BLD (test code = 3257) neg Negative - Negative Lab Interpretation (test code = Abnormal 44848-8) [facility]
--- NOTE | 2021-07-10 00:19 | EDPHYS ---
Physician Documentation [facility] Name: Yessica Polk Age: 20 yrs Sex: Female : 2000 Arrival Date: 07/09/2021 Time: 23:20 Bed 9 Private MD: ED Physician Chirag Yadav HPI: 07/10 00:04 This 20 yrs old Female presents to ER via Ambulatory with complaints of Laceration, - cp Finger. 00:05 The patient or guardian reports a laceration. The complaints affect the dorsal side cp middle phalanx right middle finger. Context: The problem was sustained at work, resulted from sharp edge of broken bottle. Onset: The symptoms/episode began/occurred this past Friday night. Associated signs and symptoms: The patient has no apparent associated signs or symptoms. Historical: - Allergies: 07/09 23:45 No Known Allergies; tw5 - Home Meds: 23:45 None [Active]; tw5 - PMHx: 23:45 None; tw5 - Immunization history:: Flu vaccine is not up to date. Patient has never been vaccinated. - Social history:: Smoking status: Patient denies any tobacco usage or history of. ROS: 07/10 00:07 Constitutional: Negative for body aches, chills, fever. cp Skin: Positive for laceration(s), of the dorsal side middle phalanx right middle finger. Neuro: Negative for numbness, tingling. All other systems are negative. Exam: 00:10 Constitutional: The patient appears in no acute distress, alert, awake, comfortable, cp well developed, well nourished. 00:10 Cardiovascular: Rate: normal. cp 00:10 Respiratory: the patient does not display signs of respiratory distress, Respirations: normal. 00:10 Musculoskeletal/extremity: ROM: full active range of motion, in the right middle finger, Perfusion: the extremity is normally perfused throughout, Sensation intact. Tendon exam: specific tendon testing normal through active and passive range of motion 00:10 Skin: injury, laceration(s), the wound is approximately 2.5 cm(s), of the dorsal side middle phalanx right middle finger, that can be described as no foreign body, linear, without bleeding, mild swelling and mild erythema. Vital Signs: 07/09 23:44 BP 122 / 80; Pulse 80; Resp 14; Temp 98.1; Pulse Ox 100% on R/A; Weight 86.18 kg; tw5 Height 5 ft. 4 in. (162.56 cm); 23:44 Body Mass Index 32.61 (86.18 kg, 162.56 cm) tw5 MDM: 07/10 00:00 Patient medically screened. cp 00:10 Differential diagnosis: cellulitis, simple laceration, tendon injury. cp 00:18 Data reviewed: vital signs, nurses notes. cp 00:18 Counseling: I had a detailed discussion with the patient and/or guardian regarding: the cp historical points, exam findings, and any diagnostic results supporting the discharge/admit diagnosis, to return to the emergency department if symptoms worsen or persist or if there are any questions or concerns that arise at home. 07/10 00:04 Order name: Wound dressing; Complete Time: 00:38 cp 07/10 00:04 Order name: Finger Splint; Complete Time: 00:38 cp Administered Medications: 00:38 Drug: Tetanus Toxoid,Adsorbed 0.5 ml {Internal Consultant: Ask The Doctor. Exp: 07/11/2022. Lot tw5 #: [id number]. } Route: IM; Site: right deltoid; 00:39 Drug: Cephalexin 500 mg Route: PO; tw5 Disposition: 04:02 Co-signature as Attending Physician, Chirag Yadav MD I agree with the assessment and kdr plan of care. Disposition Summary: 07/10/21 00:18 Discharge Ordered Location: Home cp Problem: new cp Symptoms: have improved cp Condition: Stable cp Diagnosis - Laceration without foreign body of finger without damage to nail - right middle cp finger Followup: cp - With: Private Physician - When: 1 - 2 days - Reason: Worsening of condition Discharge Instructions: - Discharge Summary Sheet cp - Nonsutured Laceration Care cp Forms: - Medication Reconciliation Form cp - Thank You Letter cp - Antibiotic Education cp - Prescription Opioid Use cp Prescriptions: - Cephalexin 500 mg Oral Capsule - take 1 capsule by ORAL route every 8 hours for 10 days; 30 capsule; Refills: 0, cp Product Selection Permitted Signatures: Chirag Yadav MD MD [facility] Alejandro Deluca PA PA cp Wood, Tiffany tw5
--- NOTE | 2021-07-10 00:19 | ER ---
Nurse's Notes [facility] Name: Yessica Polk Age: 20 yrs Sex: Female : 2000 Arrival Date: 07/09/2021 Time: 23:20 Bed 9 Private MD: Diagnosis: Laceration without foreign body of finger without damage to nail-right middle finger Presentation: 07/09 23:44 Chief complaint: Patient states: "I am [employer] and I stuck my hand in an ice chest tw5 with a broken bottle. Then today it started gushing again, I came up here for stitches.". Coronavirus screen: Vaccine status: Patient reports being unvaccinated. Ebola Screen: Patient negative for fever greater than or equal to 101.5 degrees Fahrenheit, and additional compatible Ebola Virus Disease symptoms Patient denies exposure to infectious person. Patient denies travel to an Ebola-affected area in the 21 days before illness onset. Complicating Factors: There are no complicating factors for this patient. Initial Sepsis Screen: Does the patient meet any 2 criteria? No. Patient's initial sepsis screen is negative. Does the patient have a suspected source of infection? No. Patient's initial sepsis screen is negative. Risk Assessment: Do you want to hurt yourself or someone else? Patient reports no desire to harm self or others. Onset of symptoms was July 08, 2021. 23:44 Method Of Arrival: Ambulatory tw5 23:44 Acuity: ROLAND 4 tw5 Triage Assessment: 23:45 General: Appears in no apparent distress. Behavior is calm. Pain: Denies pain. Injury tw5 Description: Laceration. Historical: - Allergies: 23:45 No Known Allergies; tw5 - Home Meds: 23:45 None [Active]; tw5 - PMHx: 23:45 None; tw5 - Immunization history:: Flu vaccine is not up to date. Patient has never been vaccinated. - Social history:: Smoking status: Patient denies any tobacco usage or history of. Screenin/24 00:39 Abuse screen: Denies threats or abuse. Denies injuries from another. Nutritional tw5 screening: No deficits noted. Tuberculosis screening: No symptoms or risk factors identified. Fall Risk None identified. Assessment: 00:39 Injury Description: Laceration is clean. tw5 00:39 Musculoskeletal: No deficits noted. tw5 Vital Signs: 07/09 23:44 BP 122 / 80; Pulse 80; Resp 14; Temp 98.1; Pulse Ox 100% on R/A; Weight 86.18 kg; tw5 Height 5 ft. 4 in. (162.56 cm); 23:44 Body Mass Index 32.61 (86.18 kg, 162.56 cm) tw5 ED Course: 23:20 Patient arrived in ED. bp1 23:45 Triage completed. tw5 23:45 Arm band placed on. tw5 23:51 Alejandro Deluca PA is PHCP. cp 23:51 Chirag Yadav MD is Attending Physician. cp 07/10 00:39 Patient has correct armband on for positive identification. tw5 00:39 No provider procedures requiring assistance completed. Patient did not have IV access tw5 during this emergency room visit. Administered Medications: 00:38 Drug: Tetanus Toxoid,Adsorbed 0.5 ml {Rental Manager: [employer]. Exp: 07/11/2022. Lot tw5 #: [id number]. } Route: IM; Site: right deltoid; 00:39 Drug: Cephalexin 500 mg Route: PO; tw5 Outcome: 00:18 Discharge ordered by . cp 00:39 Discharged to home ambulatory. tw5 00:39 Condition: good 00:39 Discharge instructions given to patient, Instructed on discharge instructions, follow up and referral plans. medication usage, Demonstrated understanding of instructions, follow-up care, medications, Prescriptions given X 1. 00:40 Patient left the ED. tw5 Signatures: Alejandro Deluca PA PA cp [place], Brittany bp1 Lorri Chamberlain tw5 Corrections: (The following items were deleted from the chart) 07/09 23:46 23:44 Pulse 80bpm; Resp 14bpm; Pulse Ox 100% RA; Temp 98.1F; 86.18 kg; Height 5 ft. 4 tw5 in.; BMI: 32.6; tw5
[2021-07-10] MEDS ORDERED: CEPHALEXIN 250 MG CAP ONE (00:26)
[2021-07-10] MEDS ORDERED: TETANUS & DIPHTHERIA TOX,ADULT 0.5 ML VIAL ONE (00:26)
[2021-07-10 01:11] VITALS: BP 122/80; TEMP 98.1; O2SAT 100
== END 2021-07-10 00:40 | disposition home or self-care (01) ==
LOC: ER 23:18
DX: S61.212A Laceration without foreign body of right middle finger without damage to nail, initial encounter (principal); W25.XXXA Contact with sharp glass, initial encounter; Y92.89 Other specified places as the place of occurrence of the external cause; Y99.8 Other external cause status; Z23 Encounter for immunization
CPT/HCPCS: 90471; 90714; 99283

== ENCOUNTER 2021-10-05 11:36 | Inpatient (IN) | payer OTHER ==
[2021-10-05] MEDS ORDERED: PENICILLIN G POT 5 MU/100 ML VIAL IV ONE (12:38)
[2021-10-05] MEDS ORDERED: Ringers Lactate 1,000 ML IV PRN (12:38)
[2021-10-05] MEDS ORDERED: BUTORPHANOL 1 MG/ML INJ IV PRN (12:38)
[2021-10-05] MEDS ORDERED: PROMETHAZINE INJ 25 MG/ML AMP IM PRN (12:38)
[2021-10-05] MEDS: Ringers Lactate 1,000 ML IV SCH ×2 (12:40→19:40)
--- OUTSIDE RECORDS SUMMARY | 2021-10-05 12:53 | XMS REPORT | Continuity of Care Document ---
:2000 Author Organization [facility] t Address [address] [place] [address] Care Team Providers Name Role Phone JAI DELCID Attending Clinician Unavailable WILIAN ART Attending Clinician Unavailable MD WILIAN ART Attending Clinician Unavailable Ultrasound, Ang-Mfm Attending Clinician Unavailable Radha De Leon MD Attending Clinician Veena FARM INSTRUCTORJai Fontenot Attending Clinician Doctor Unassigned, [place] Attending Clinician Unavailable WILIAN ART Admitting Clinician Unavailable MD WILIAN ART Admitting Clinician Unavailable Payers Payer Name Policy Type Policy Number Effective Date Expiration Date S jerry MEDICAID PENDING PENDING 2020 00:00:00 MEDICAID OF [place] [id number] 2020 00:00:00 Problems Condition Condition Condition Status Onset Resolution Last Treating Co mments Source Name Details Category Date Date Treatment Clinician Date Supervisio Supervisio Disease Active U nivers n of high n of high 5-26 ity of risk risk 00:00: [place] 00 Medi tiarra in third in third Branch trimester trimester Insufficie Insufficie Disease Active 2020- U nivers nt nt 5-19 ity of 00:00: [place] care in care in 00 Medical third third Branch trimester trimester Multiparit Multiparit Disease Active U nivers y y 5-19 ity of 00:00: [place] 00 Medical Branch Pedal Pedal Disease Active Univers edema edema 5-19 ity of 00:00: [place] 00 Medical Branch Vaginal Vaginal Disease Active Univers discharge discharge 5- ity of 00:00: [place] [address] Medical Branch Obesity in Obesity in Disease Active U nivers - ity of 00:00: [place] [facility] BMI BMI Disease Active Univers 35.0-35.9, 35.0-35.9, 5-19 it y of adult adult 00:00: [address] Family Family Disease Active Overview: Univer s history of history of 04-23 Formattin ity of genetic genetic 00:00: g of this [place] disorder disorder 00 note Medica l might be Branch different from the original. Patient Brother was born with cleft lip, cleft palatePat ient Cousin has down syndrome Supervisio Supervisio Disease Active U nivers n of n of 04-21 ity of high-risk high-risk 00:00: [facility] with with Branch insufficie insufficie nt nt care, care, unspecifie unspecifie d d trimester trimester Late Late Disease Active [facility] 04-21 ity of care care 00:00: [address] Branch Maternal Maternal Disease Active Overview: Un jon varicella, varicella, 04-20 Formattin ity of non-immune non-immune 00:00: g of this 00 note Medical might be Branch different from the original. Address in PP UTI in UTI in Disease Active [facility] , , 04-20 it y of ante[place] [facility] [place] Allergies, Adverse Reactions, Alerts Allergy Allergy Status Severity Reaction(s) Onset Inactive Treating Comm ents Source Name Type Date Date Clinician NO KNOWN Drug Active Univers ALLERGIE Class ity of S [facility] Social History Social Habit Start Date Stop Date Quantity Comments Source ASSERTION 2019-11-13 University of 00:00:00 [facility] Exposure to Not sure University of SARS-CoV-2 [facility] (event) Branch Tobacco use and 2020-07-12 2020-07-12 Never used Universit y of exposure 00:00:00 00:00:00 [facility] Alcohol intake 2020-07-12 2020-07-12 Current University of 00:00:00 00:00:00 non-drinker of [facility] alcohol Branch (finding) Sex Assigned At [birth year] Universit y of 00:00:00 00:00:00 [facility] Branch Smoking Status Start Date Stop Date Source Never smoker [facility] Medications Ordered Filled Start Stop Current Ordering Indication Dosage Frequency Signature Comments Components Source Medication Medication Date Date Medication? Clinician (SIG) Name Name L. neil/L. Yes Take by Univ ers josé miguel/L. 5-19 mouth. ity of eunice/L. rham 19:24: [place] (AZO 20 Medical COMPLETE Branch FEMININE BALANCE ORAL) L. neil/L. Yes Take by Univ ers josé miguel/L. 5-19 mouth. ity of eunice/L. rham 19:24: [place] (AZO 20 Medical COMPLETE Branch FEMININE BALANCE ORAL) L. neil/L. Yes Take by Univ ers josé miguel/L. 5-19 mouth. ity of eunice/L. rham 19:24: [place] (AZO 20 Medical COMPLETE Branch FEMININE BALANCE ORAL) L. neil/L. Yes Take by Univ ers josé miguel/L. 5-19 mouth. ity of eunice/L. rham 19:24: [place] (AZO 20 Medical COMPLETE Branch FEMININE BALANCE ORAL) L. neil/L. Yes Take by Univ ers josé miguel/L. 5-19 mouth. ity of eunice/L. rham 19:24: [place] (AZO 20 Medical COMPLETE Branch FEMININE BALANCE ORAL) L. neil/L. Yes Take by Univ ers josé miguel/L. 5-19 mouth. ity of eunice/L. rham 19:24: [place] (AZO 20 Medical COMPLETE Branch FEMININE BALANCE ORAL) L. neil/L. Yes Take by Univ ers josé miguel/L. 5-19 mouth. ity of eunice/L. rham 19:24: [place] (AZO 20 Medical COMPLETE Branch FEMININE BALANCE ORAL) L. neil/L. Yes Take by Univ ers josé miguel/L. 5-19 mouth. ity of eunice/L. rham 19:24: [place] (AZO 20 Medical COMPLETE Branch FEMININE BALANCE ORAL) Nitrofurant 2016-0 Yes [id number] 100mg Take 1 Cap Univers oin&Nit. 3-14 by mouth 2 ity o f Macrocryst 00:00: (two) [place] (MACROBID) 00 times Medical 100 mg daily. Branch capsule Nitrofurant 2015-0 Yes [id number] 100mg Take 1 Cap Univers oin&Nit. 3-14 by mouth 2 ity o f Macrocryst 00:00: (two) [place] (MACROBID) 00 times Medical 100 mg daily. Branch capsule Nitrofurant 2015-0 Yes [id number] 100mg Take 1 Cap Univers oin&Nit. 3-14 by mouth 2 ity o f Macrocryst 00:00: (two) [place] (MACROBID) 00 times Medical 100 mg daily. Branch capsule Nitrofurant 2015-0 Yes [id number] 100mg Take 1 Cap Univers oin&Nit. 3-14 by mouth 2 ity o f Macrocryst 00:00: (two) [place] (MACROBID) 00 times Medical 100 mg daily. Branch capsule Nitrofurant 2015- Yes [id number] 100mg Take 1 Cap Univers oin&Nit. 3-14 by mouth 2 ity o f Macrocryst 00:00: (two) [place] (MACROBID) 00 times Medical 100 mg daily. Branch capsule Nitrofurant 2015- Yes [id number] 100mg Take 1 Cap Univers oin&Nit. 3-14 by mouth 2 ity o f Macrocryst 00:00: (two) [place] (MACROBID) 00 times Medical 100 mg daily. Branch capsule Nitrofurant 2015-0 Yes [id number] 100mg Take 1 Cap Univers oin&Nit. 3-14 by mouth 2 ity o f Macrocryst 00:00: (two) [place] (MACROBID) 00 times Medical 100 mg daily. Branch capsule Nitrofurant 2015-0 Yes [id number] 100mg Take 1 Cap Univers oin&Nit. 3-14 by mouth 2 ity o f Macrocryst 00:00: (two) [place] (MACROBID) 00 times Medical 100 mg daily. Branch capsule Nitrofurant 2015-0 Yes [id number] 100mg Take 1 Cap Univers oin&Nit. 3-14 by mouth 2 ity o f Macrocryst 00:00: (two) [place] (MACROBID) 00 times Medical 100 mg daily. Branch capsule [id number] 2015- Yes [id number] 1{each} Take 1 Univers Cbn&Gluc-FA 3-02 Each by ity o f -DSS-DHA 00:00: mouth [place] (CITRANATAL 00 daily. Medica l ASSURE) Branch 35-1-50-300 mg Cmpk combo pack [id number] 2015- Yes [id number] 1{each} Take 1 Univers Cbn&Gluc-FA 3-02 Each by ity o f -DSS-DHA 00:00: mouth [place] (CITRANATAL 00 daily. Medica l ASSURE) Branch 35-1-50-300 mg Cmpk combo pack [id number] 2015- Yes [id number] 1{each} Take 1 Univers Cbn&Gluc-FA 3-02 Each by ity o f -DSS-DHA 00:00: mouth [place] (CITRANATAL 00 daily. Medica l ASSURE) Branch 35-1-50-300 mg Cmpk combo pack [id number] 2015- Yes [id number] 1{each} Take 1 Univers Cbn&Gluc-FA 3-02 Each by ity o f -DSS-DHA 00:00: mouth [place] (CITRANATAL 00 daily. Medica l ASSURE) Branch 35-1-50-300 mg Cmpk combo pack [id number] 2015- Yes [id number] 1{each} Take 1 Univers Cbn&Gluc-FA 3-02 Each by ity o f -DSS-DHA 00:00: mouth [place] (CITRANATAL 00 daily. Medica l ASSURE) Branch 35-1-50-300 mg Cmpk combo pack [id number] 2015- Yes [id number] 1{each} Take 1 Univers Cbn&Gluc-FA 3-02 Each by ity o f -DSS-DHA 00:00: mouth [place] (CITRANATAL 00 daily. Medica l ASSURE) Branch 35-1-50-300 mg Cmpk combo pack [id number] 2015- Yes [id number] 1{each} Take 1 Univers Cbn&Gluc-FA 3-02 Each by ity o f -DSS-DHA 00:00: mouth [place] (CITRANATAL 00 daily. Medica l ASSURE) Branch 35-1-50-300 mg Cmpk combo pack [id number] 2015- Yes [id number] 1{each} Take 1 Univers Cbn&Gluc-FA 3-02 Each by ity o f -DSS-DHA 00:00: mouth [place] (CITRANATAL 00 daily. Medica l ASSURE) Branch 35-1-50-300 mg Cmpk combo pack [id number] 2016-0 Yes [id number] 1{each} Take 1 Univers Cbn&Gluc-FA 3-02 Each by ity o f -DSS-DHA 00:00: mouth [place] (CITRANATAL 00 daily. Medica l ASSURE) Branch 35-1-50-300 mg Cmpk combo pack Immunizations Ordered Filled Immunization Date Status Comments Sour e Immunization Name Name Influenza Virus 2015-04-18 Completed Universit y of Vaccine Quad IM 3+ 00:00:00 [facility] Influenza Virus 2015-04-18 Completed Universit y of Vaccine Quad IM 3+ 00:00:00 [facility] Influenza Virus 2015-04-18 Completed Universit y of Vaccine Quad IM 3+ 00:00:00 [facility] Influenza Virus 2015-04-18 Completed Universit y of Vaccine Quad IM 3+ 00:00:00 [facility] Influenza Virus 2015-04-18 Completed Universit y of Vaccine Quad IM 3+ 00:00:00 [facility] Influenza Virus 2015-04-18 Completed Universit y of Vaccine Quad IM 3+ 00:00:00 [facility] Influenza Virus 2015-04-18 Completed Universit y of Vaccine Quad IM 3+ 00:00:00 [facility] Influenza Virus 2015-04-18 Completed Universit y of Vaccine Quad IM 3+ 00:00:00 [facility] Influenza Virus 2015-04-18 Completed Universit y of Vaccine Quad IM 3+ 00:00:00 [facility] Vital Signs Vital Name Observation Time Observation Value Comments Source Systolic blood 2020-07-12 18:03:00 136 mm[Hg] Univer sity of pressure [facility] Diastolic blood 2020-07-12 18:03:00 82 mm[Hg] Unive rsity of pressure [facility] Heart rate 2020-07-12 18:03:00 86 /min [facility] Body temperature 2020-07-12 18:03:00 36.83 Majo [facility] Respiratory rate 2020-07-12 18:03:00 16 /min [facility] Body height 2020-07-12 18:03:00 162.6 cm Universi ty [facility] [place] [facility] Body weight 2020-07-12 18:03:00 94.257 kg Universi ty [facility] [place] [facility] BMI 2020-07-12 18:03:00 35.67 kg/m2 Universi ty [facility] [place] [facility] Systolic blood 2020-07-12 18:03:00 136 mm[Hg] Univer sity of pressure [place] [facility] Diastolic blood 2020-07-12 18:03:00 82 mm[Hg] Unive rsity of pressure [place] [facility] Heart rate 2020-07-12 18:03:00 86 /min Universi ty [facility] [place] [facility] Body temperature 2020-07-12 18:03:00 36.83 Majo Univ ersity of [place] [facility] Respiratory rate 2020-07-12 18:03:00 16 /min Univ ersity of [place] [facility] Body height 2020-07-12 18:03:00 162.6 cm Universi ty [facility] [place] [facility] Body weight 2020-07-12 18:03:00 94.257 kg Universi ty [facility] [place] [facility] BMI 2020-07-12 18:03:00 35.67 kg/m2 Universi ty [facility] [place] [facility] Systolic blood 2020-07-05 19:08:00 116 mm[Hg] Univer sity of pressure [place] [facility] Diastolic blood 2020-07-05 19:08:00 75 mm[Hg] Unive rsity of pressure [place] [facility] Heart rate 2020-07-05 19:08:00 89 /min Universi ty [facility] [place] [facility] Body temperature 2020-07-05 19:08:00 36.61 Majo Univ ersity of [place] [facility] Respiratory rate 2020-07-05 19:08:00 16 /min Univ ersity of [place] [facility] Body height 2020-07-05 19:08:00 162.6 cm Universi ty [facility] [place] [facility] Body weight 2020-07-05 19:08:00 94.348 kg [facility]i ty [facility] [place] [facility] BMI 2020-07-05 19:08:00 35.70 kg/m2 [facility]i ty [facility] [place] [facility] Systolic blood 2020-07-05 19:08:00 116 mm[Hg] Univer sity of pressure [place] [facility] Diastolic blood 2020-07-05 19:08:00 75 mm[Hg] [facility] Heart rate 2020-07-05 19:08:00 89 /min [facility] Body temperature 2020-07-05 19:08:00 36.61 Majo [facility] Respiratory rate 2020-07-05 19:08:00 16 /min [facility] Body height 2020-07-05 19:08:00 162.6 cm [facility] Body weight 2020-07-05 19:08:00 94.348 kg [facility] BMI 2020-07-05 19:08:00 35.70 kg/m2 [facility] Procedures Procedure Date / Time Performed Performing Clinician [facility] e POCT URINALYSIS 2020-07-12 18:06:00 Jai Delcid [facility] GLUCOSE 1 HOUR POST 2020-07-05 20:53:00 [facility] CBC WITH DIFF 2020-07-05 20:53:00 Jai Delcid [facility] RUBELLA SCREEN IGG 2020-07-05 20:53:00 Jai Delcid [facility] VZV ANTIBODY SCREEN 2020-07-05 20:53:00 Jia Delcid [facility] HEPATITIS B SURFACE 2020-07-05 20:53:00 Jai Delcid [facility] ANTIGEN [facility] GC & CHLAMYDIA 2020-07-05 20:53:00 Jai Delcid [facility] AMPLIFIED ASSAY [facility] HIV 1/2 AG-AB WITH 2020-07-05 20:53:00 Jai Delcid [facility] REFLEX [facility] GALV ONLY - SYPHILIS 2020-07-05 20:53:00 Jai Delcid [facility] IGG/IGM [facility] HB ABO GROUPING 2020-07-05 20:30:00 Jai Delcid [facility] POCT URINALYSIS W/O 2020-07-05 19:11:00 Jai Delcid [facility] SPECIFIC Critical access hospital POCT TEST 2020-07-05 19:10:00 Jai Delcid [facility] ASSIGNMENT OF BENEFITS 2020-07-05 18:00:51 Doctor Unassigned, No [facility] Branch Encounters Start End Encounter Admission Attending Care Care Encounter Source Date/Time Date/Time Type Type Clinicians Facility Department ID 2020-08-02 2020-08-02 Outpatient Katrina DELCID [facility] [id number] Univers 10:45:00 10:45:00 AJI [id number] ity o [facility] 2020-08-02 2020-08-02 Outpatient Katrina DELCID [facility] [id number] Univers 10:45:00 10:45:00 JAI orourke o f [facility] 2020-07-27 2020-07-27 Outpatient P [facility] [id number] Univers 13:00:00 13:00:00 [id number] [facility] 2020-07-19 2020-07-21 Inpatient [facility] [id number] [place] 00:00:00 00:00:00 WILIAN [address] [facility] 2020-07-19 2020-07-19 Outpatient Katrina DELCID [facility] [id number] Univers 13:45:00 13:45:00 JAI [id number] haven o [facility] 2020-07-19 2020-07-19 Outpatient Katrina DELCID [facility] [id number] Univers 13:45:00 13:45:00 JAI orourke o f [facility] 2020-07-13 2020-07-13 [employer] Ultrasound, [facility] [id number] 08:14:46 09:29:46 Visit [employer] AIR AND HYDRONIC BALANCING TECHNICIAN [id number] [facility] [id number] MATERNAL [id number] & CHILD [address] [place] [address] 2020-07-13 2020-07-13 [employer] UltrasoundClarissearchana [facility] 1.2 .840.114 [id number] Univers 08:14:46 09:29:46 Visit Radha De Leon AIR AND HYDRONIC BALANCING TECHNICIAN [id number] ity of REGIONAL [id number] Pierre as MATERNAL [id number] [facility] ical & CHILD [address] [facility] 2020-07-13 2020-07-13 Outpatient R [facility] [id number] Univers 08:00:00 08:00:00 [id number] ity [facility] 2020-07-13 2020-07-13 Outpatient P [facility] [id number] Univers 08:00:00 08:00:00 ity [facility] 2020-07-13 2020-07-13 Outpatient P [facility] [id number] Univers 08:00:00 08:00:00 ity [facility] 2020-07-13 2020-07-13 Abstract SANAM Delcid [id number] Univers 00:00:00 00:00:00 Roshunda R AIR AND HYDRONIC BALANCING TECHNICIAN [id number] ity of REGIONAL 4.2.7.2.686 Pierre as MATERNAL [id number] [facility] ical & CHILD [address] [place] [address] 2020-07-13 2020-07-13 Case SANAM Delcid 1.2.840.114 [id number] 00:00:00 00:00:00 Management Roshunda R AIR AND HYDRONIC BALANCING TECHNICIAN [id number] REGIONAL [id number] MATERNAL [id number] & CHILD [address] [place] [address] 2020-07-13 2020-07-13 Abstract SANAM Delcid [id number] 00:00:00 00:00:00 Roshunda R AIR AND HYDRONIC BALANCING TECHNICIAN 350.1.13.10 REGIONAL 4.2.7.2.686 MATERNAL [id number] & CHILD [address] [place] [address] 2020-07-13 2020-07-13 Case SANAM Delcid 1.2.840.114 [id number] Univers 00:00:00 00:00:00 Management Roshunda R AIR AND HYDRONIC BALANCING TECHNICIAN [id number] ity of REGIONAL 4.2.7.2.686 Pierre as MATERNAL [id number] Med ical & CHILD [address] [place] [address] 2020-07-12 2020-07-12 Routine Veena [facility] 1.2.840.114 [id number] Univers 12:54:42 13:12:23 Roshunda R AIR AND HYDRONIC BALANCING TECHNICIAN [id number] ity of Visit REGIONAL 4.2.7.2.686 Pierre as MATERNAL [id number] Med ical & CHILD [address] [place] [address] 2020-07-12 2020-07-12 [facility] 1.2.840.114 [id number] 12:54:42 13:12:23 Roshunda R AIR AND HYDRONIC BALANCING TECHNICIAN 350.1.13.10 Visit REGIONAL 4.2.7.2.686 MATERNAL [id number] & [address] 2020-07-12 2020-07-12 Outpatient R VEENA FLKARLA [facility] [id number] Univers 12:45:00 12:45:00 ROSHUNDA ity o f [facility] 2020-07-10 2020-07-10 Telephone Veena [facility] [id number] Univers 00:00:00 00:00:00 Roshunda R AIR AND HYDRONIC BALANCING TECHNICIAN 350.1.13.10 ity of REGIONAL 4.2.7.2.686 Pierre as MATERNAL [id number] Med ical & CHILD [address] [place] [address] 2020-07-10 2020-07-10 Telephone Veena [facility] [id number] 00:00:00 00:00:00 Roshunda R AIR AND HYDRONIC BALANCING TECHNICIAN 350.1.13.10 REGIONAL 4.2.7.2.686 MATERNAL [id number] & CHILD [address] [place] [address] 2020-07-06 2020-07-06 Telephone Veena [facility] [id number] Univers 00:00:00 00:00:00 Roshunda R AIR AND HYDRONIC BALANCING TECHNICIAN 350.1.13.10 ity of REGIONAL 4.2.7.2.686 Pierre as MATERNAL [id number] Med ical & CHILD [address] [place] [address] 2020-07-06 2020-07-06 Telephone SANAM Delcid [id number] 00:00:00 00:00:00 Roscatrinanda R AIR AND HYDRONIC BALANCING TECHNICIAN 350.1.13.10 REGIONAL 4.2.7.2.686 MATERNAL [id number] & CHILD [address] [facility] 2020-07-05 2020-07-05 Initial Veena FLKARLA 1.2.840.114 [id number] Univers 13:45:34 15:07:20 Roshunda R AIR AND HYDRONIC BALANCING TECHNICIAN 350.1.13.10 ity of Visit REGIONAL [id number] Pierre as MATERNAL [id number] [facility] & CHILD [address] [place] [address] 2020-07-05 2020-07-05 Initial Veena FLKARLA 1.2.840.114 [id number] 13:45:34 15:07:20 Roshunda R AIR AND HYDRONIC BALANCING TECHNICIAN 350.1.13.10 Visit REGIONAL [id number] MATERNAL [id number] & CHILD [address] [place] [address] 2020-07-05 2020-07-05 Outpatient R VEENA [facility] [id number] Univers 14:00:00 14:00:00 NELINDA ity o f [facility] 2020-07-05 2020-07-05 Orders Doctor LUAN 1.2.840.114 [id number] Univers 00:00:00 00:00:00 Only Unassigned, DAYANA 350.1.13.10 ity of [place] [facility] 4.2.7.2.686 Pierre as [id number] [address] Results Test Description Test Time Test Comments Results Result Comments Source SARS-CoV-2 (COVID-19) RNA [Presence] in Respiratory sp ecimen by 2020-07-20 01:35:10 ARUN with probe detection Test Item Value Reference Range Interpretation Comme nts SARS-CoV-2 (COVID-19) RNA [Presence] in Respiratory Not detected No t-Detected specimen by ARUN with probe detection (test code = 98917-7) Whether patient is employed in a healthcare setting (test code = 85418-7) Whether the patient has symptoms related to condition of interest (test code = 84015-3) Patient was hospitalized because of this condition (test code = 72684-8) Whether the patient was admitted to intensive care unit (ICU) for condition of interest (test code = 38837-6) Whether patient resides in a congregate care setting (test code = 71408-4) POCT URINALYSIS W SPECIFIC [id number] 18:06:00 Test Item Value Reference Range Interpretation [...] 3267) Lab Interpretation (test code = Normal 31425-0) [facility]LAMYDIA AMPLIFIED [id number] 17:39:54 Test Item Value Reference Range Interpretation Comments C. trachomatis Nucleic Negative Negative Acid (test code = 71873-8) N. gonorrhoeae Nucleic Negative Negative Acid (test code = 24035-9) AISHA (test code = AISHA) Reliable results [...] NAAT. Lab Interpretation Normal (test code = 05058-6) [facility] [id number] 16:04:02 Test Item Value Reference Range Interpretation Comments VZV IgG antibody Negative Negative (test code = 41925-0) AISHA (test code = AISHA) Positive - Indicates the patient was exposed to VZV through infection or vaccination.Negative - Indicates the patient could be susceptible to VZV infection.Equivocal - A second specimen should be sent for testing. [facility] (VITALY) [id number] 16:04:02 Test Item Value Reference Range Interpretation Comments Rubella screen IgG Positive Negative (test code = 4021350443) AISHA (test code = AISHA) Positive - Indicates the patient was exposed to Rubella through infection or vaccination.Negative - Indicates the patient could be susceptible to Rubella infection.Equivocal - A second specimen should be sent. [facility] ONLY - SYPHILIS [id number] 14:27:48 Test Item Value Reference Range Interpretation Comments Syphilis IgG/IgM (test Non-reactive Non-reactive code = 78819-2) AISHA (test code = AISHA) Non-reactive - No serologic evidence of T. pallidum infection. Cannot exclude incubating or early syphilis. Submit a second specimen in 2-4 weeks if syphilis is clinically suspected. Equivocal - Further testing to follow. Reactive - Further testing to follow. Lab Interpretation (test Normal code = 92679-1) [facility] AG-AB WITH [id number] 06:36:14 Test Item Value Reference Range Interpretation Comments HIV Negative Negative Semi-quantitative (test code = 77570-1) AISHA (test code = Non-reactive for HIV-1 AISHA) antigen and HIV-1/HIV-2 antibodies. ?No laboratory evidence of HIV infection. ?Repeat in 2-4 weeks if acute HIV infection is suspected. [facility], BLOOD [id number] 06:19:22 Test Item Value Reference Range Interpretation Comments ABO & RH (test code O POSITIVE Performe d at [facility] = 20) [facility] Blood Bank3 [address] [facility] s [id number] Free: [phone] A No. [id number] IAT (test code = Negative Performed a t [facility] 1185) [facility] Blood Bank3 [address] [facility] s [id number] Free: [phone] A No. [id number] [facility] SURFACE [id number] 04:47:41 Test Item Value Reference Range Interpretation Comments HBsAg Semi-Quantitative (test code = Negative Negative 5195-3) [facility] 1 HOUR POST [id number] 04:46:20 Test Item Value Reference Range Interpretation Comments GLUC 1 HR (test code = 8626618113) 134 mg/dL 120-170 Lab Interpretation (test code = Normal 69638-3) [facility] WITH [id number] 04:19:59 Test Item Value Reference Range Interpretation Comments WBC (test code = See_Comment H [Automated 1632-2) message] The sy stem which generated this result transmitted reference range : 4.30 - 11.10 10*3/?L. The reference range was not used to interpret this result as normal/abnormal . RBC (test code = See_Comment [Automated 626-8) message] The sy stem which generated this [...] RDW-SD (test code = 42.2 fL 39.0-49.9 46516-6) RDW-CV (test code = 13.3 % 12.0-15.5 788-0) PLT (test code = See_Comment [Automated 777-3) message] The sy stem which generated this result transmitted reference range : 166 - 358 10*3/ ?L. The reference r wilbert was not used to interpret this result as normal/abnormal . MPV (test code = 10.4 fL 9.5-12.9 25113-7) NRBC/100 WBC (test See_Comment [Automat ed code = 1324931380) message] The system which generated this result transmitted reference range : 0.0 - 10.0 /100 WBCs. The refer ence range was not u sed to interpret th is result as normal/abnormal . NRBC x10^3 (test code See_Comment [Auto mated = [id number]) message] The s ystem which generated this result transmitted reference range : 10*3/?L. The reference range was not used to interpret this result as normal/abnormal . GRAN MAT (NEUT) % 76.7 % (test code = 770-8) IMM GRAN % (test code 1.50 % = 3692813059) LYMPH % (test code = 14.6 % 736-9) MONO % (test code = 6.1 % 5905-5) EOS % (test code = 0.8 % 713-8) BASO % (test code = 0.3 % 706-2) GRAN MAT x10^3(ANC) 9.86 10*3/uL 1.88-7.09 H (test code = 7752367862) IMM GRAN x10^3 (test 0.19 10*3/uL 0.00-0.06 H code = 5525675077) LYMPH x10^3 (test code 1.88 10*3/uL 1.32-3.29 = 731-0) MONO x10^3 (test code 0.79 10*3/uL 0.33-0.92 = 742-7) EOS x10^3 (test code = 0.10 10*3/uL 0.03-0.39 711-2) BASO x10^3 (test code 0.04 10*3/uL 0.01-0.07 = 704-7) Lab Interpretation Abnormal (test code = 38778-1) [facility] [id number] 19:11:00 Test Item Value Reference Range Interpretation Comments POCT PREG (test code = 1605) Positive On board controls acceptable with C Yes Line (test code = 3574) POCT PREG LOT # (test code = 3575) POCT PREG TEST DATE (test code = 3576) Lab Interpretation (test code = Normal 81013-8) [facility] URINALYSIS W/O SPECIFIC [id number] 19:11:00 Test Item Value Reference Range Interpretation [...] Negative Lab Interpretation (test code = Abnormal 24971-2) [facility] [id number] 19:11:00 Test Item Value Reference Range Interpretation Comments POCT PREG (test code = 1605) Positive On board controls acceptable with C Yes Line (test code = 3574) POCT PREG LOT # (test code = 3575) POCT PREG TEST DATE (test code = 3576) Lab Interpretation (test code = Normal 26755-4) [facility] URINALYSIS W/O SPECIFIC [id number] 19:11:00 Test Item Value Reference Range Interpretation [...] Negative Lab Interpretation (test code = Abnormal 32860-3) [facility]
[2021-10-05] MEDS ORDERED: CARBOPROST TROME 250 MCG/ML IM ONE (12:56)
[2021-10-05] MEDS ORDERED: OXYTOCIN/LR 20 UNIT/1,000 ML BAG IV ONE (12:56)
[2021-10-05] MEDS ORDERED: LIDOCAINE 1% MPF 30 ML VIAL ONE (12:56)
[2021-10-05] MEDS ORDERED: PENICILLIN G POT 5 MU/VIAL IV ONE (14:00)
[2021-10-05] MEDS ORDERED: NA CHLORIDE 0.9% 100 ML ONE (14:00)
[2021-10-05 14:38] LABS: Absolute Lymphocytes (CBC) 1.4 K/uL (0.7-4.9); Hematocrit 31.5 % (36.0-45.0); MCV 81.2 fL (80-100); MPV 7.8 fL (7.6-11.3); RBC Red Blood Cell Count 3.88 M/uL (3.86-4.86)
[2021-10-05] MEDS ORDERED: Oxycodone HCl/Acetaminophen 1 TAB TAB ONE (15:09)
[2021-10-05] MEDS ORDERED: ACETAMINOPHEN 500 MG TAB PO PRN (15:11)
[2021-10-05] MEDS ORDERED: BISACODYL 10 MG RECTAL SUPP PR PRN (15:11)
[2021-10-05] MEDS ORDERED: DOCUSATE NA/SENNA CONC 1 TAB PO PRN (15:11)
[2021-10-05] MEDS: Oxycodone HCl/Acetaminophen 1 TAB TAB PO PRN ×2 (15:15→21:50)
[2021-10-05] MEDS ORDERED: Oxycodone HCl/Acetaminophen 1 TAB TAB PO PRN (15:36)
[2021-10-05 15:48] LABS: Barbiturates NEGATIVE (NEGATIVE); Benzodiazepines NEGATIVE (NEGATIVE); Cocaine NEGATIVE (NEGATIVE); METHAMPHETAM NEGATIVE (NEGATIVE); Methadone NEGATIVE (NEGATIVE); Opiates NEGATIVE (NEGATIVE); Phencyclidine NEGATIVE (NEGATIVE); THC Cannibis NEGATIVE (NEGATIVE)
[2021-10-05 15:48] LABS: Urine Bilirubin Negative (Negative); Urine Blood 3+ (Negative); Urine Clarity Clear (Clear); Urine Color Yellow (Yellow); Urine Glucose Negative (Negative); Urine Protein 1+ (Negative); Urine Urobilinogen 0.2 mg/dL (0.2-1.0)
[2021-10-05 16:03] LABS: Urine Bacteria >50 /HPF (<20)
[2021-10-05 16:51] VITALS: BMI 25.7
--- NOTE | 2021-10-05 18:54 | PREOPHP ---
Date of Admission: 10/05/2021 History Of Present Illness: A -sbfd-hfj, 3, para 2, no antepartum care whatsoever, delivered here. She has had last year. Other 2 children normal, normal pregnancies and no complica tions according to the patient. Drop in lab has been ordered, which came in. She said she was contr acting every 10 minutes. On monitor, she was every 6. Baby looked good. Initial blood pressure was a little high, but then if come normal. She would not allow pelvic exam until she had been here for an hour or so. When she was checked, she was 6-7 with bulging membranes on admission. Requested ep idural, but of course, went rapidly to complete. Delivered her other 2 babies naturally as well. Family History: Mother with diabetes and from complications of diabetes. Allergies: THE PATIENT SAYS SHE HAS NO ALLERGIES. Past Surgical History: She has had no surgeries. Medications: No drugs taken prior to admission according the patient, although I have ordered a [employer] drug screen. Physical Examination: HEENT: Clear. Pupils equal, round, reactive to light and accommodation. Conjunctivae well perfused . No oral, lingual, buccal lesions. Chest and Lungs: Clear. Heart: Without murmurs, thrills, heaves, or rubs. Breasts: Not examined. Abdomen: Term size. Extremities: Very edematous. Normal reflexes. Assessment/plan: Admit for stabilization and delivery. JACKIE/SUNNY Voice ID: [id number]
--- NOTE | 2021-10-05 18:57 | DN ---
Surgeon: Pop Interiano MD History: A -zlfh-ugr 3, para 2, according the patient, 38 weeks 5 days, absolutely no care. Came in to our institution. Noted to be 6-7 cm on admission, went to complete se cond stage of about 15 minutes. Spontaneous vaginal delivery of an 8 pounds 4 ounce male , Apg ars 8, 9 slightly cyanotic. Pediatrics notified. The patient noted to have a large right labia iram ra hematoma, also a very small first-degree laceration in the posterior fourchette. Posterior fourch ette laceration closed with 2-0 chromic running stitch after local infiltration. The hematoma involv ed basically the entire labia, was evacuated and has sewn with numerous that sutures first of 2-0 chr omic running locked. Then 0 chromic interrupted gyrabn-yq-humcr stitches. At this point, bleeding s eems to have subsided. We will put an ice pack on her bottom with pressure and monitor very carefull y. She has no history of bleeding problems that she has related to us. Schultze delivery of the qasim centa, which was inspected and noted be intact and normal. Final Diagnoses: Term intrauterine 38 weeks 5 days according patient's last menstrual sukh od. No care. Large right labial hematoma. Small first-degree laceration. Drop-in labs or dered. She agreed to penicillin, but the baby was born for the penicillin can be given, but I am goi ng to give the penicillin as prophylaxis for the labial hematoma. JOSEC/MODL Voice ID: [id number] Report ID: [id number]
[2021-10-05] MEDS: IBUPROFEN 600 MG TAB PO PRN (19:24)
[2021-10-06] MEDS: Oxycodone HCl/Acetaminophen 1 TAB TAB PO PRN ×3 (01:21→11:05)
[2021-10-06 05:45] VITALS: TEMP 97.8
--- NOTE | 2021-10-06 09:09 | DS ---
Hospital Course: A 20-year-old, 3, para 2. No antepartum care. Had a baby here apparently last year. The other 2 pregnancies are normal and no problems during the according the pat ient. Came in 4-5 cm, rapidly progressing. Subsequently, delivered of an 8-pound 4-ounce male infan t, Apgars 8 and 9 at 1 minute. Noted to have a large right labial hematoma, which was evacuated and numerous sutures placed. A small first-degree laceration to posterior fourchette, sutured with 2-0 c hromic, all of these under local infiltration. Schultze delivery of the placenta, which was inspecte d and noted to be intact and normal. , the patient is afebrile. She is ambulating. The s welling in the right labia is going down and everything looks stable at this point. She is immune to Rubella, Rh positive. Will be dismissed later today to either call my office Friday for followup or to see the [facility] to report any temperature elevation of 100 degrees or greater, severe cam[place] n, heavy bleeding, or any other type abnormalities. control choices have been discussed. She requires no analgesics on dismissal. Tdap has been offered. Final Diagnoses: Term intrauterine , vaginal delivery, right labia majora hematoma, Tdap of fered. No care. JACKIE/SUNNY Voice ID: [id number] Report ID: [id number]
[2021-10-06 14:34] VITALS: BP 116/57
[2021-10-06] MEDS: IBUPROFEN 600 MG TAB PO PRN (14:41)
== END 2021-10-06 16:20 | disposition home or self-care (01) | DRG 768 ==
LOC: L&D 11:36 → 2ND-WC 12:47
PROVIDERS: ADMIT Specialist; ATTEND Specialist
PROC: 10E0XZZ Delivery of Products of Conception, External Approach (ICD-10-PCS; principal; 2021-10-05)
PROC: 0U9MXZZ Drainage of Vulva, External Approach (ICD-10-PCS; 2021-10-05)
PROC: 0HQ9XZZ Repair Perineum Skin, External Approach (ICD-10-PCS; 2021-10-05)
PROC: 10E0XZZ Delivery of Products of Conception, External Approach (ICD-10-PCS; 2021-10-05)
DX: O90.2 Hematoma of obstetric wound (principal); Z37.0 Single live birth; O70.0 First degree perineal laceration during delivery; Z3A.38 38 weeks gestation of pregnancy
CPT/HCPCS: 36415; 80307; 81001; 85025; 86762; 86850; 86900; 86901; 87077; 87086; 87088; 87186; 87340; 99218; G0433; J2540; J2590

== ENCOUNTER 2021-10-07 12:44 | Inpatient (IN) | payer OTHER ==
--- OUTSIDE RECORDS SUMMARY | 2021-10-07 12:48 | XMS REPORT | Continuity of Care Document ---
:2000 Author Organization [facility] t Address [address] [place] [address] Care Team Providers Name Role Phone JAI DELCID Attending Clinician Unavailable WILIAN ART Attending Clinician Unavailable MD WILIAN ART Attending Clinician Unavailable Ultrasound, Ang-Mfm Attending Clinician Unavailable Radha De Leon MD Attending Clinician Veena ELECTRONIC INDUCTION HARDENERJai Attending Clinician Doctor Unassigned, [place] Attending Clinician Unavailable WILIAN ART Admitting Clinician Unavailable MD WILIAN ART Admitting Clinician Unavailable Payers Payer Name Policy Type Policy Number Effective Date Expiration Date S ejrry MEDICAID PENDING PENDING 2020 00:00:00 MEDICAID OF [place] [id number] 2020 00:00:00 Problems Condition Condition Condition Status Onset Resolution Last Treating Co mments Source Name Details Category Date Date Treatment Clinician Date Supervisio Supervisio Disease Active 2020- U nivers n of high n of high 5-26 ity of risk risk 00:00: [place] 00 Medi tiarra in third in third Branch trimester trimester Insufficie Insufficie Disease Active 2020- U nivers nt nt 5-19 ity of 00:00: [place] care in care in 00 Medical third third Branch trimester trimester Multiparit Multiparit Disease Active 2020- U nivers y y 5-19 ity of 00:00: [place] 00 Medical Branch Pedal Pedal Disease Active 2020- Univers edema edema 5-19 ity of 00:00: [place] 00 Medical Branch Vaginal Vaginal Disease Active Univers discharge discharge 5-19 ity of 00:00: [place] [address] Medical Branch Obesity in Obesity in Disease Active U nivers - ity of 00:00: [place] [address] Medical [place] BMI BMI Disease Active Univers 35.0-35.9, 35.0-35.9, 5-19 it y of adult adult 00:00: [address] Family Family Disease Active Overview: Univer s history of history of 04-23 Formattin ity of genetic genetic 00:00: g of this [place] disorder disorder 00 note Medica l might be Branch different from the original. Patient Brother was born with cleft lip, cleft palatePat ient Cousin has down syndrome Supervisio Supervisio Disease Active U [facility] n of n of 04-21 ity of high-risk high-risk 00:00: [place] s [facility] with with Branch insufficie insufficie nt nt care, care, unspecifie unspecifie d d trimester trimester Late Late Disease Active [facility] 04-21 ity of care care 00:00: [address] Maternal Maternal Disease Active Overview: Un jon varicella, varicella, 04-20 Formattin ity of non-immune non-immune 00:00: g of this [place] 00 note Medical might be Branch different from the original. Address in PP UTI in UTI in Disease Active [facility] , , 04-20 it y of antepartum antepartum [place] Allergies, Adverse Reactions, Alerts Allergy Allergy Status Severity Reaction(s) Onset Inactive Treating Comm ents Source Name Type Date Date Clinician NO KNOWN Drug Active [facility] ALLERGIE Class ity of S [facility] Social History Social Habit Start Date Stop Date Quantity Comments Source ASSERTION 2019-11-13 University of 00:00:00 [facility] Exposure to Not sure University of SARS-CoV-2 [facility] (event) Branch Tobacco use and 2020-07-12 2020-07-12 Never used Universit y of exposure 00:00:00 00:00:00 [facility] Alcohol intake 2020-07-12 2020-07-12 Current University of 00:00:00 00:00:00 non-drinker of [facility] alcohol Branch (finding) Sex Assigned At [address] [facility] y of 00:00:00 00:00:00 [facility] Smoking Status Start Date Stop Date Source Never smoker [facility] Medications Ordered Filled Start Stop Current Ordering Indication Dosage Frequency Signature Comments Components Source Medication Medication Date Date Medication? Clinician (SIG) Name Name Avery neil/L. Yes Take by Univ ers josé miguel/L. 5-19 mouth. ity of eunice/L. rham 19:24: [place] (AZO 20 Medical COMPLETE Branch FEMININE BALANCE ORAL) L. neil/L. Yes Take by Univ ers josé miguel/L. 5-19 mouth. ity of eunice/L. rham 19:24: [place] (AZO 20 Medical COMPLETE Branch FEMININE BALANCE ORAL) L. neil/L. Yes Take by Univ ers josé miguel/L. 5-19 mouth. ity of eunice/L. rham 19:24: [place] (AZO 20 Medical COMPLETE Branch FEMININE BALANCE ORAL) L. neil/L. Yes Take by Univ ers josé miguel/L. 5-19 mouth. ity of eunice/L. rham 19:24: [place] (AZO 20 Medical COMPLETE Branch FEMININE BALANCE ORAL) L. neil/L. Yes Take by Univ ers josé miguel/L. 5-19 mouth. ity of eunice/L. rham 19:24: [place] (AZO 20 Medical COMPLETE Branch FEMININE BALANCE ORAL) L. neil/L. Yes Take by Univ ers josé miguel/L. 5-19 mouth. ity of eunice/L. rham 19:24: [place] (AZO 20 Medical COMPLETE Branch FEMININE BALANCE ORAL) L. neil/L. Yes Take by Univ ers josé miguel/L. 5-19 mouth. ity of eunice/L. rham 19:24: [place] (AZO 20 Medical COMPLETE Branch FEMININE BALANCE ORAL) L. neil/L. Yes Take by Univ ers josé miguel/L. 5-19 mouth. ity of eunice/L. rham 19:24: [place] (AZO 20 Medical COMPLETE Branch FEMININE BALANCE ORAL) Nitrofurant 2016-0 Yes [id number] 100mg Take 1 Cap Univers oin&Nit. 3-14 by mouth 2 ity o f Macrocryst 00:00: (two) [place] (MACROBID) 00 times Medical 100 mg daily. Branch capsule Nitrofurant 2015-0 Yes [id number] 100mg Take 1 Cap Univers oin&Nit. 3-14 by mouth 2 ity o f Macrocryst 00:00: (two) [place] (MACROBID) 00 times Medical 100 mg daily. Branch capsule Nitrofurant 2015-0 Yes [id number] 100mg Take 1 Cap Univers oin&Nit. 3-14 by mouth 2 ity o f Macrocryst 00:00: (two) [place] (MACROBID) 00 times Medical 100 mg daily. Branch capsule Nitrofurant 2015- Yes [id number] 100mg Take 1 Cap Univers oin&Nit. 3-14 by mouth 2 ity o f Macrocryst 00:00: (two) [place] (MACROBID) 00 times Medical 100 mg daily. Branch capsule Nitrofurant 2015- Yes [id number] 100mg Take 1 Cap Univers oin&Nit. 3-14 by mouth 2 ity o f Macrocryst 00:00: (two) [place] (MACROBID) 00 times Medical 100 mg daily. Branch capsule Nitrofurant 2015- Yes [id number] 100mg Take 1 Cap Univers oin&Nit. 3-14 by mouth 2 ity o f Macrocryst 00:00: (two) [place] (MACROBID) 00 times Medical 100 mg daily. Branch capsule Nitrofurant 2015- Yes [id number] 100mg Take 1 Cap Univers oin&Nit. 3-14 by mouth 2 ity o f Macrocryst 00:00: (two) [place] (MACROBID) 00 times Medical 100 mg daily. Branch capsule Nitrofurant 2015-0 Yes [id number] 100mg Take 1 Cap Univers oin&Nit. 3-14 by mouth 2 ity o f Macrocryst 00:00: (two) [place] (MACROBID) 00 times Medical 100 mg daily. Branch capsule Nitrofurant 2015-0 Yes [id number] 100mg Take 1 Cap Univers oin&Nit. 3-14 by mouth 2 ity o f Macrocryst 00:00: (two) [place] (MACROBID) 00 times Medical 100 mg daily. Branch capsule [id number] 2015- Yes [id number] 1{each} Take 1 Univers Cbn&Gluc-FA 3-02 Each by ity o f -DSS-DHA 00:00: mouth [place] (CITRANATAL 00 daily. Medica l ASSURE) Branch 35-1-50-300 mg Cmpk combo pack [id number] 2015- Yes [id number] 1{each} Take 1 Univers Cbn&Gluc-FA 3-02 Each by ity o f -DSS-DHA 00:00: mouth [place] (CITRANATAL 00 daily. Medica l ASSURE) Branch 35-1-50-300 mg Cmpk combo pack [id number] 2015- Yes [id number] 1{each} Take 1 Univers Cbn&Gluc-FA 3-02 Each by ity o f -DSS-DHA 00:00: mouth [place] (CITRANATAL 00 daily. Medica l ASSURE) Branch 35-1-50-300 mg Cmpk combo pack [id number] 2015- Yes [id number] 1{each} Take 1 Univers Cbn&Gluc-FA 3-02 Each by ity o f -DSS-DHA 00:00: mouth [place] (CITRANATAL 00 daily. Medica l ASSURE) Branch 35-1-50-300 mg Cmpk combo pack [id number] 2015- Yes [id number] 1{each} Take 1 Univers Cbn&Gluc-FA 3-02 Each by ity o f -DSS-DHA 00:00: mouth [place] (CITRANATAL 00 daily. Medica l ASSURE) Branch 35-1-50-300 mg Cmpk combo pack [id number] 2015- Yes [id number] 1{each} Take 1 Univers Cbn&Gluc-FA 3-02 Each by ity o f -DSS-DHA 00:00: mouth [place] (CITRANATAL 00 daily. Medica l ASSURE) Branch 35-1-50-300 mg Cmpk combo pack [id number] 2015- Yes [id number] 1{each} Take 1 Univers Cbn&Gluc-FA 3-02 Each by ity o f -DSS-DHA 00:00: mouth [place] (CITRANATAL 00 daily. Medica l ASSURE) Branch 35-1-50-300 mg Cmpk combo pack [id number] 2015- Yes [id number] 1{each} Take 1 Univers Cbn&Gluc-FA 3-02 Each by ity o f -DSS-DHA 00:00: mouth [place] (CITRANATAL 00 daily. Medica l ASSURE) Branch 35-1-50-300 mg Cmpk combo pack [id number] 2016-0 Yes [id number] 1{each} Take 1 Univers Cbn&Gluc-FA 3-02 Each by ity o f -DSS-DHA 00:00: mouth [place] (CITRANATAL 00 daily. Medica l ASSURE) Branch 35-1-50-300 mg Cmpk combo pack Immunizations Ordered Filled Immunization Date Status Comments [facility] Immunization Name Name Influenza Virus 2015-04-18 Completed Universit y of Vaccine Quad IM 3+ 00:00:00 [facility] Influenza Virus 2015-04-18 Completed Universit y of Vaccine Quad IM 3+ 00:00:00 [facility] Influenza Virus 2015-04-18 Completed Universit y of Vaccine Quad IM 3+ 00:00:00 [facility] Influenza Virus 2015-04-18 Completed Universit y of Vaccine Quad IM 3+ 00:00:00 [facility] Influenza Virus 2015-04-18 Completed Universit y of Vaccine Quad IM 3+ 00:00:00 [facility] Influenza Virus 2015-04-18 Completed Universit y of Vaccine Quad IM 3+ 00:00:00 [facility] Influenza Virus 2015-04-18 Completed Universit y of Vaccine Quad IM 3+ 00:00:00 [facility] Influenza Virus 2015-04-18 Completed Universit y of Vaccine Quad IM 3+ 00:00:00 [facility] Influenza Virus 2015-04-18 Completed Universit y of Vaccine Quad IM 3+ 00:00:00 [facility] Vital Signs Vital Name Observation Time Observation Value Comments Source Systolic blood 2020-07-12 18:03:00 136 mm[Hg] Univer sity of pressure [facility] Diastolic blood 2020-07-12 18:03:00 82 mm[Hg] Unive rsity of pressure [facility] Heart rate 2020-07-12 18:03:00 86 /min [facility] Body temperature 2020-07-12 18:03:00 36.83 Majo [facility] Respiratory rate 2020-07-12 18:03:00 16 /min [facility] Body height 2020-07-12 18:03:00 162.6 cm Universi ty of [place] [facility] Body weight 2020-07-12 18:03:00 94.257 kg Universi ty of [place] [facility] BMI 2020-07-12 18:03:00 35.67 kg/m2 Universi ty of [place] [facility] Systolic blood 2020-07-12 18:03:00 136 mm[Hg] Univer sity of pressure [place] [facility] Diastolic blood 2020-07-12 18:03:00 82 mm[Hg] Unive rsity of pressure [place] [facility] Heart rate 2020-07-12 18:03:00 86 /min Universi ty of [place] [facility] Body temperature 2020-07-12 18:03:00 36.83 Majo Univ ersity of [place] [facility] Respiratory rate 2020-07-12 18:03:00 16 /min Univ ersity of [place] [facility] Body height 2020-07-12 18:03:00 162.6 cm Universi ty [facility] [place] [facility] Body weight 2020-07-12 18:03:00 94.257 kg Universi ty [facility] [place] [facility] BMI 2020-07-12 18:03:00 35.67 kg/m2 Universi ty [facility] [place] [facility] Systolic blood 2020-07-05 19:08:00 116 mm[Hg] Univer sity of pressure [place] [facility] Diastolic blood 2020-07-05 19:08:00 75 mm[Hg] Unive rsity of pressure [place] [facility] Heart rate 2020-07-05 19:08:00 89 /min Universi ty [facility] [place] [facility] Body temperature 2020-07-05 19:08:00 36.61 Majo Univ ersity of [place] [facility] Respiratory rate 2020-07-05 19:08:00 16 /min Univ ersity of [place] [facility] Body height 2020-07-05 19:08:00 162.6 cm Universi ty [facility] [place] [facility] Body weight 2020-07-05 19:08:00 94.348 kg Universi ty [facility] [place] [facility] BMI 2020-07-05 19:08:00 35.70 kg/m2 Universi ty of [place] [facility] Systolic blood 2020-07-05 19:08:00 116 mm[Hg] Univer sity of pressure [place] [facility] Diastolic blood 2020-07-05 19:08:00 75 mm[Hg] [facility] [place] Heart rate 2020-07-05 19:08:00 89 /min [facility] Body temperature 2020-07-05 19:08:00 36.61 Majo [facility] Respiratory rate 2020-07-05 19:08:00 16 /min [facility] Body height 2020-07-05 19:08:00 162.6 cm [facility] Body weight 2020-07-05 19:08:00 94.348 kg [facility] BMI 2020-07-05 19:08:00 35.70 kg/m2 [facility] Procedures Procedure Date / Time Performed Performing Clinician Sour e POCT URINALYSIS 2020-07-12 18:06:00 Jai Delcid [facility] GLUCOSE 1 HOUR POST 2020-07-05 20:53:00 [facility] CBC WITH DIFF 2020-07-05 20:53:00 Jai Delcid [facility] RUBELLA SCREEN IGG 2020-07-05 20:53:00 Jai Delcid [facility] VZV ANTIBODY SCREEN 2020-07-05 20:53:00 Jai Delcid [facility] HEPATITIS B SURFACE 2020-07-05 20:53:00 Jai Delcid [facility] ANTIGEN [facility] GC & CHLAMYDIA 2020-07-05 20:53:00 Jai Delcid [facility] AMPLIFIED ASSAY [facility] HIV 1/2 AG-AB WITH 2020-07-05 20:53:00 Jai Delcid [facility] REFLEX [facility] GALV ONLY - SYPHILIS 2020-07-05 20:53:00 Jai Delcid [facility] IGG/IGM [facility] HB ABO GROUPING 2020-07-05 20:30:00 Jai Delcid [facility] POCT URINALYSIS W/O 2020-07-05 19:11:00 [facility] 2020-07-05 19:10:00 Jai Delcid [facility] ASSIGNMENT OF BENEFITS 2020-07-05 18:00:51 Doctor Unassigned, No [facility] Encounters Start End Encounter Admission Attending Care Care Encounter Source Date/Time Date/Time Type Type Clinicians Facility Department ID 2020-08-02 2020-08-02 Outpatient Katrina DELCID [facility] [id number] Univers 10:45:00 10:45:00 JAI [id number] ity o [facility] 2020-08-02 2020-08-02 Outpatient Katrina DELCID [facility] [id number] Univers 10:45:00 10:45:00 JAI haidertom o f [facility] 2020-07-27 2020-07-27 Outpatient P [facility] [id number] Univers 13:00:00 13:00:00 [id number] [facility] 2020-07-19 2020-07-21 Inpatient [facility] [id number] Victor 00:00:00 00:00:00 WILIAN [address] 2020-07-19 2020-07-19 Outpatient Katrina DELCID [facility] [id number] Univers 13:45:00 13:45:00 JAI [id number] haven o [facility] 2020-07-19 2020-07-19 Outpatient Katrina DELCID [facility] [id number] Univers 13:45:00 13:45:00 JAI orourke o [facility] 2020-07-13 2020-07-13 Adult Parole Officer Ultrasound, [facility] [id number] 08:14:46 09:29:46 Visit Clarissearchana METAL CONTR[employer] WORKER [id number] [facility] [id number] MATERNAL [id number] & CHILD [address] [place] [address] 2020-07-13 2020-07-13 Adult Parole Officer UltrasoundClarissearchana [facility] 1.2 .840.114 [id number] [facility] 08:14:46 09:29:46 Visit Gold De Leonta METAL CONTROL WORKER [id number] ity of REGIONAL [id number] Pierre as MATERNAL [id number] [facility] ical & CHILD [address] [facility] 2020-07-13 2020-07-13 Outpatient R [facility] [id number] Univers 08:00:00 08:00:00 [id number] ity [facility] 2020-07-13 2020-07-13 Outpatient P [facility] [id number] Univers 08:00:00 08:00:00 ity [facility] 2020-07-13 2020-07-13 Outpatient P [facility] [id number] Univers 08:00:00 08:00:00 ity [facility] 2020-07-13 2020-07-13 Abstract SANAM Delcid [id number] Univers 00:00:00 00:00:00 Rosnda R [employer]AL CONTROL WORKER [id number] ity of REGIONAL [id number] Pierre as MATERNAL [id number] Med ical & CHILD [address] [place] [address] 2020-07-13 2020-07-13 Case SANAM Delcid 1.2.840.114 [id number] 00:00:00 00:00:00 Management Roshunda R METAL CONTROL WORKER [id number] REGIONAL 4.2.7.2.686 MATERNAL [id number] & CHILD [address] [place] [address] 2020-07-13 2020-07-13 Abstract SANAM Delcid 1.2.840.114 [id number] 00:00:00 00:00:00 Roshunda R METAL CONTROL WORKER [id number] REGIONAL 4.2.7.2.686 MATERNAL [id number] & CHILD [address] [place] [address] 2020-07-13 2020-07-13 Case SANAM Delcid 1.2.840.114 [id number] Univers 00:00:00 00:00:00 Management Roshunda R METAL CONTROL WORKER [id number] ity of REGIONAL 4.2.7.2.686 Pierre as MATERNAL [id number] Med ical & CHILD [address] [place] [address] 2020-07-12 2020-07-12 Routine Veena [facility] 1.2.840.114 [id number] Univers 12:54:42 13:12:23 Roshunda R METAL CONTROL WORKER [id number] ity of Visit REGIONAL [id number] Pierre as MATERNAL [id number] [facility] ical & CHILD [address] [place] [address] 2020-07-12 2020-07-12 Routine Veena [facility] 1.2.840.114 [id number] 12:54:42 13:12:23 Roshunda R METAL CONTROL WORKER [id number] Visit REGIONAL 4.2.7.2.686 MATERNAL [id number] & [address] 2020-07-12 2020-07-12 Outpatient R VEENA [facility] [id number] Univers 12:45:00 12:45:00 ROSHUNDA ity o f [facility] 2020-07-10 2020-07-10 [facility] [id number] [facility] 00:00:00 00:00:00 Roshunda R METAL CONTROL WORKER [id number] ity of REGIONAL 4.2.7.2.686 Pierre as MATERNAL [id number] [facility] & CHILD [address] [place] [address] 2020-07-10 2020-07-10 Telephone Veena [facility] [id number] 00:00:00 00:00:00 Roshunda R METAL CONTROL WORKER [id number] REGIONAL 4.2.7.2.686 MATERNAL [id number] & [address] 2020-07-06 2020-07-06 Telephone Veena [facility] [id number] Univers 00:00:00 00:00:00 Roshunda R METAL CONTROL WORKER [id number] ity of REGIONAL 4.2.7.2.686 Pierre as MATERNAL [id number] [facility] ical & CHILD [address] [place] [address] 2020-07-06 2020-07-06 Telephone Veena MDKARLA [id number] 00:00:00 00:00:00 Roshunda R METAL CONTROL WORKER [id number] REGIONAL 4.2.7.2.686 MATERNAL [id number] & CHILD [address] [facility] 2020-07-05 2020-07-05 Initial Veena [facility] 1.2.840.114 [id number] Univers 13:45:34 15:07:20 Roshunda R METAL CONTROL WORKER [id number] ity of Visit REGIONAL [id number] Pierre as MATERNAL [id number] [facility] & CHILD [address] [place] [address] 2020-07-05 2020-07-05 Initial Veena [facility] 1.2.840.114 [id number] 13:45:34 15:07:20 Roshunda R METAL CONTROL WORKER [id number] Visit REGIONAL 4.2.7.2.686 MATERNAL [id number] & CHILD 107 [facility] 2020-07-05 2020-07-05 Outpatient R VEENA [facility] [id number] Univers 14:00:00 14:00:00 ROSHUNDA ity o f [facility] 2020-07-05 2020-07-05 Orders Doctor LUAN 1.2.840.114 [id number] Univers 00:00:00 00:00:00 Only Unassigned, DAYANA [id number] ity of [place] [facility] 4.2.7.2.686 Pierre as [id number] [address] Results Test Description Test Time Test Comments Results Result Comments Source SARS-CoV-2 (COVID-19) RNA [Presence] in Respiratory sp ecimen by 2020-07-20 01:35:10 ARUN with probe detection Test Item Value Reference Range Interpretation Comme nts SARS-CoV-2 (COVID-19) RNA [Presence] in Respiratory Not detected No t-Detected specimen by ARUN with probe detection (test code = 92364-0) Whether patient is employed in a healthcare setting (test code = 89585-3) Whether the patient has symptoms related to condition of interest (test code = 29557-1) Patient was hospitalized because of this condition (test code = 25234-1) Whether the patient was admitted to intensive care unit (ICU) for condition of interest (test code = 87812-5) Whether patient resides in a congregate care setting (test code = 47050-7) POCT URINALYSIS W SPECIFIC [id number] 18:06:00 Test Item Value Reference Range Interpretation [...] 3267) Lab Interpretation (test code = Normal 66581-4) [facility] CHLAMYDIA AMPLIFIED [id number] 17:39:54 Test Item Value Reference Range Interpretation Comments C. trachomatis Nucleic Negative Negative Acid (test code = 62382-1) N. gonorrhoeae Nucleic Negative Negative Acid (test code = 96229-4) AISHA (test code = AISHA) Reliable results [...] NAAT. Lab Interpretation Normal (test code = 61849-3) [facility] [id number] 16:04:02 Test Item Value Reference Range Interpretation Comments VZV IgG antibody Negative Negative (test code = 23516-9) AISHA (test code = AISHA) Positive - Indicates the patient was exposed to VZV through infection or vaccination.Negative - Indicates the patient could be susceptible to VZV infection.Equivocal - A second specimen should be sent for testing. [facility] (VITALY) [id number] 16:04:02 Test Item Value Reference Range Interpretation Comments Rubella screen IgG Positive Negative (test code = 3662724393) AISHA (test code = AISHA) Positive - Indicates the patient was exposed to Rubella through infection or vaccination.Negative - Indicates the patient could be susceptible to Rubella infection.Equivocal - A second specimen should be sent. [facility] ONLY - SYPHILIS [id number] 14:27:48 Test Item Value Reference Range Interpretation Comments Syphilis IgG/IgM (test Non-reactive Non-reactive code = 58255-2) AISHA (test code = AISHA) Non-reactive - No serologic evidence of T. pallidum infection. Cannot exclude incubating or early syphilis. Submit a second specimen in 2-4 weeks if syphilis is clinically suspected. Equivocal - Further testing to follow. Reactive - Further testing to follow. Lab Interpretation (test Normal code = 40638-3) [facility] AG-AB WITH [id number] 06:36:14 Test Item Value Reference Range Interpretation Comments HIV Negative Negative Semi-quantitative (test code = 20062-2) AISHA (test code = Non-reactive for HIV-1 AISHA) antigen and HIV-1/HIV-2 antibodies. ?No laboratory evidence of HIV infection. ?Repeat in 2-4 weeks if acute HIV infection is suspected. [facility]OD [id number] 06:19:22 Test Item Value Reference Range Interpretation Comments ABO & RH (test code O POSITIVE Performe d at [facility] = 20) Laboratory Serv [facility] Blood Bank3 [address] [facility] s [address]Zmwm Free: [phone] A No. [id number] IAT (test code = Negative Performed a t [facility] 1185) Laboratory Serv [facility] Blood [facility]3 [address] [facility] [address]Rwyz Free: [phone] A No. [id number] [facility] SURFACE [id number] 04:47:41 Test Item Value Reference Range Interpretation Comments HBsAg Semi-Quantitative (test code = Negative Negative 5195-3) [facility] 1 HOUR POST [id number] 04:46:20 Test Item Value Reference Range Interpretation Comments GLUC 1 HR (test code = 9213561045) 134 mg/dL 120-170 Lab Interpretation (test code = Normal 40179-2) [facility] WITH [id number] 04:19:59 Test Item Value Reference Range Interpretation Comments WBC (test code = See_Comment H [Automated 7090-2) message] The sy stem which generated this result transmitted reference range : 4.30 - 11.10 10*3/?L. The reference range was not used to interpret this result as normal/abnormal . RBC (test code = See_Comment [Automated 202-8) message] The sy stem which generated this [...] RDW-SD (test code = 42.2 fL 39.0-49.9 39604-8) RDW-CV (test code = 13.3 % 12.0-15.5 788-0) PLT (test code = See_Comment [Automated 777-3) message] The sy stem which generated this result transmitted reference range : 166 - 358 10*3/ ?L. The reference r wilbert was not used to interpret this result as normal/abnormal . MPV (test code = 10.4 fL 9.5-12.9 39064-2) NRBC/100 WBC (test See_Comment [Automat ed code = 1648100817) message] The system which generated this result transmitted reference range : 0.0 - 10.0 /100 WBCs. The refer ence range was not u sed to interpret th is result as normal/abnormal . NRBC x10^3 (test code See_Comment [Auto mated = [id number]) message] The s ystem which generated this result transmitted reference range : 10*3/?L. The reference range was not used to interpret this result as normal/abnormal . GRAN MAT (NEUT) % 76.7 % (test code = 770-8) IMM GRAN % (test code 1.50 % = 3324163349) LYMPH % (test code = 14.6 % 736-9) MONO % (test code = 6.1 % 5905-5) EOS % (test code = 0.8 % 713-8) BASO % (test code = 0.3 % 706-2) GRAN MAT x10^3(ANC) 9.86 10*3/uL 1.88-7.09 H (test code = 4177124406) IMM GRAN x10^3 (test 0.19 10*3/uL 0.00-0.06 H code = 1921131795) LYMPH x10^3 (test code 1.88 10*3/uL 1.32-3.29 = 731-0) MONO x10^3 (test code 0.79 10*3/uL 0.33-0.92 = 742-7) EOS x10^3 (test code = 0.10 10*3/uL 0.03-0.39 711-2) BASO x10^3 (test code 0.04 10*3/uL 0.01-0.07 = 704-7) Lab Interpretation Abnormal (test code = 58127-3) [facility] [id number] 19:11:00 Test Item Value Reference Range Interpretation Comments POCT PREG (test code = 1605) Positive On board controls acceptable with C Yes Line (test code = 3574) POCT PREG LOT # (test code = 3575) POCT PREG TEST DATE (test code = 3576) Lab Interpretation (test code = Normal 14626-4) [facility] URINALYSIS W/O SPECIFIC [id number] 19:11:00 Test Item Value Reference Range Interpretation [...] Negative Lab Interpretation (test code = Abnormal 25386-5) [facility] [id number] 19:11:00 Test Item Value Reference Range Interpretation Comments POCT PREG (test code = 1605) Positive On board controls acceptable with C Yes Line (test code = 3574) POCT PREG LOT # (test code = 3575) POCT PREG TEST DATE (test code = 3576) Lab Interpretation (test code = Normal 86645-0) [facility] URINALYSIS W/O SPECIFIC [id number] 19:11:00 Test Item Value Reference Range Interpretation [...] Negative Lab Interpretation (test code = Abnormal 70793-4) [facility]
[2021-10-07] MEDS ORDERED: ACETAMINOPHEN 500 MG TAB ONE (13:21)
[2021-10-07] MEDS ORDERED: ONDANSETRON 4 MG/2 ML VIAL ONE (13:24)
[2021-10-07] MEDS ORDERED: NA CHLORIDE 0.9% 1,000 ML ONE (13:28)
[2021-10-07 13:40] LABS: Absolute Lymphocytes (CBC) 1.5 K/uL (0.7-4.9); Hematocrit 26.5 % (36.0-45.0); Lymphocytes % 21.2 % (15.3-44.8); MCV 79.1 fL (80-100); MPV 7.5 fL (7.6-11.3); RBC Red Blood Cell Count 3.35 M/uL (3.86-4.86)
[2021-10-07] MEDS ORDERED: ACETAMINOPHEN 650MG/RECT SUPP PR ONE (13:45)
[2021-10-07] MEDS ORDERED: NA CHLORIDE 0.9% 500 ML ONE (13:45)
[2021-10-07 13:50] LABS: Protime INR 0.96
[2021-10-07 13:55] LABS: Albumin 2.3 g/dL (3.4-5.0); Bilirubin Total 0.7 mg/dL (0.2-1.0); Potassium 4.1 mmol/L (3.5-5.1); Protein, Total 6.1 g/dL (6.4-8.2)
[2021-10-07 13:59] LABS: Urine Blood 3+ (Negative); Urine Glucose Negative (Negative); Urine Protein 3+ (Negative); Urine Specific Gravity 1.025 (1.005-1.030)
--- NOTE | 2021-10-07 14:09 | RAD REPORT ---
EXAM DESCRIPTION: US - Pelvis Complete - 10/07/2021 1:44 pm CLINICAL HISTORY: fever, r/o POC, vag delivery yesterday COMPARISON: No comparisons TECHNIQUE: Transabdominal pelvic sonography was performed. FINDINGS: Uterus is enlarged, not unexpected for recent delivery. Endometrial stripe is 6 mm in thic kness and homogeneous. No retained products of conception identified. No myometrial mass. No blood or fluid in the cul de sac. Neither ovary was identified. No adnexal abnormality seen. IMPRESSION: Homogeneous endometrial stripe 6 mm in thickness. No retained products of conception margaret ntified.
[2021-10-07 14:12] LABS: Urine Bacteria >50 /HPF (<20); Urine RBC >50 /HPF (None Seen)
[2021-10-07 14:20] LABS: Barbiturates NEGATIVE (NEGATIVE); Benzodiazepines NEGATIVE (NEGATIVE); Cocaine NEGATIVE (NEGATIVE); METHAMPHETAM NEGATIVE (NEGATIVE); Methadone NEGATIVE (NEGATIVE); Opiates NEGATIVE (NEGATIVE); Phencyclidine NEGATIVE (NEGATIVE); THC Cannibis NEGATIVE (NEGATIVE)
--- NOTE | 2021-10-07 14:23 | RAD REPORT ---
EXAM DESCRIPTION: RAD - Chest Single View - 10/07/2021 2:12 pm CLINICAL HISTORY: FEVER COMPARISON: None TECHNIQUE: AP portable chest image was obtained 10/07/2021 2:12 pm . FINDINGS: Lungs are clear. Heart and vasculature are normal. No measurable pleural effusion and no p neumothorax. No acute bony abnormality seen. No acute aortic findings suspected. IMPRESSION: No acute cardiopulmonary process.
--- NOTE | 2021-10-07 14:28 | RAD REPORT ---
EXAM DESCRIPTION: CT - Head Brain Wo Cont - 10/07/2021 2:22 pm CLINICAL HISTORY: AMS COMPARISON: No comparisons TECHNIQUE: Axial 5 mm thick images of the head were obtained without IV contrast. All CT scans are performed using dose optimization technique as appropriate and may include automated exposure control or mA/KV adjustment according to patient size. FINDINGS: No intracranial hemorrhage, mass, edema or shift of mid-line structures. No acute infarcti on changes seen. No abnormal extra-axial fluid collections. Ventricles are normal. Mastoid air cells and visualized portions of the paranasal sinuses are clear. No acute bony findings. IMPRESSION: Negative non-contrast CT head examination.
[2021-10-07] MEDS ORDERED: CEFTRIAXONE 1000 MG/VIAL ONE (14:38)
[2021-10-07] MEDS ORDERED: NA CHLORIDE 0.9% 50 ML ONE (14:38)
--- NOTE | 2021-10-07 14:56 | RAD REPORT ---
EXAM DESCRIPTION: CT - Chest For Pe Angio - 10/07/2021 2:39 pm CLINICAL HISTORY: fever, tachycardia, s/p vaginal delivery COMPARISON: No comparisons TECHNIQUE: Dynamically enhanced 3 mm thick images of the chest were obtained during administration o f approximately 150mL Isovue 370 IV contrast. Coronal and oblique MIP reconstruction images were gene rated and reviewed. Exam utilizes a protocol to evaluate the pulmonary arterial tree. All CT scans are performed using dose optimization technique as appropriate and may include automated exposure control or mA/KV adjustment according to patient size. FINDINGS: Exam has substantial respiratory motion degradation artifact ; however, no pulmonary embol i are identified. The aorta as imaged shows no acute or suspicious finding. No pericardial thickening or effusion. No infectious or aspiration pneumonia. No acute lung parenchymal process seen. No pleural effusion or pleural thickening. No mediastinal or hilar suspicious masses. No chest wall masses or abnormal axillary lymphadenopathy. IMPRESSION: Motion degraded study showing no identifiable pulmonary emboli. No pneumonia or acute lung parenchymal process. No cardiomegaly or pericardial effusion.
--- NOTE | 2021-10-07 14:59 | RAD REPORT ---
EXAM DESCRIPTION: CT - Abdomen Pelvis W Contrast - 10/07/2021 2:39 pm CLINICAL HISTORY: fever COMPARISON: CT ABD PELVIS W CONTRAST dated 08/31/2011 TECHNIQUE: Biphasic, helical CT imaging of the abdomen and pelvis was performed following 100 ml non -ionic IV contrast. No oral contrast administered. All CT scans are performed using dose optimization technique as appropriate and may include automated exposure control or mA/KV adjustment according to patient size. FINDINGS: No suspicious findings in the lung bases. Chest findings are detailed in separate report. The liver, spleen, and pancreas show no suspicious findings. Gallbladder and biliary tree are also wi thout suspicious finding. Symmetric renal function is seen with no hydronephrosis or suspicious renal mass. No pyelonephritis o r acute parenchymal process. Urinary bladder is almost fully contracted limiting assessment. No suspi cion for bladder wall thickening or enhancement. No adrenal abnormalities. Enlarged uterus is present with no myometrial abnormality identified. Thin endometrial str ipe seen. No air or other focal abnormality in the endometrial cavity. No ovarian or adnexal abnormal ity. No dilated bowel loops or bowel wall thickening. No free air, free fluid or inflammatory stranding. No hernia, mass or bulky lymphadenopathy. No suspicious bony findings. IMPRESSION: Contrast enhanced CT abdomen and pelvis showing no acute or emergent finding.
--- NOTE | 2021-10-07 15:18 | ER ---
Nurse's Notes [facility] Name: Yessica Polk Age: 20 yrs Sex: Female : 2000 Arrival Date: 10/07/2021 Time: 12:45 Bed 6 Private MD: Diagnosis: Severe sepsis without septic shock;UTI/ Urinary tract infection, site not specified Presentation: 10/07 12:55 Chief complaint: Pt's father states "she just had a baby yesterday and just started not aa5 feeling good today". Pt vomited once in ER lobby, pt's father states "she was just getting confused in the lobby". 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 Pt is alert and oriented x person,place, time, and situation but drowsy. Vaginal yesterday, pt denies heavy vaginal bleeding. Coronavirus screen: fever. Ebola Screen: Patient denies exposure to infectious person. Initial Sepsis Screen: Does the patient meet any 2 criteria? RR > 20 per min. Temp <36.0*C (96.8*F)) or > 38.3*C (100.9*F). HR > 90 bpm. Yes Does the patient have a suspected source of infection? Yes:. Risk Assessment: Do you want to hurt yourself or someone else? Patient reports no desire to harm self or others. Onset of symptoms was October 07, 2021. 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 - Social history:: Smoking status: unknown. Screenin:25 Abuse screen: Denies threats or abuse. Nutritional screening: No deficits noted. jd3 Tuberculosis screening: No symptoms or risk factors identified. Fall Risk IV access (20 points). Ambulatory Aid- None/Bed Rest/Nurse Assist (0 pts). Gait- Normal/Bed Rest/Wheelchair (0 pts) Mental Status- Overestimates/Forgets Limitations (15 pts.). Total Lafleur Fall Scale indicates Low Risk Score (25-44 pts). Fall prevention measures have been instituted. Side Rails Up X 2 Placed close to Nursing Station Frequent Obs/Assesments occuring Family Present and informed to notify staff if they need to leave bedside As available Patient and Family Educated on Fall Prevention Program and strategies. Assessment: 13:20 General: Appears uncomfortable, Behavior is cooperative, anxious, inappropriate for jd3 age. Pain: Denies pain. Neuro: Barragan Agitation-Sedation Scale (RASS): 0 - Alert and Calm Level of Consciousness is awake, obeys commands, confused, Oriented to person, time, Reports blurred vision. Cardiovascular: Heart tones present Capillary refill < 3 seconds Rhythm is sinus tachycardia. Respiratory: Airway is patent Respiratory effort is even, unlabored, Respiratory pattern is regular, symmetrical, Breath sounds are clear bilaterally. Denies cough, shortness of breath. GI: Abdomen is round Abd is soft and non tender X 4 quads. Reports nausea, vomiting. : Reports recent with continued vaginal bleeding. EENT: No signs and/or symptoms were reported regarding the EENT system. Derm: Skin is intact, Skin is diaphoretic, Skin is pale, Skin temperature is hot. Musculoskeletal: Circulation, motion, and sensation intact. Range of motion: intact in all extremities. 14:14 Reassessment: Reassessment: pt's father took pt's belongings to car. jd3 14:53 Reassessment: No changes from previously documented assessment. Patient and/or family jd3 updated on plan of care and expected duration. Pain level reassessed. pt remains altered at this time at A\\T\\O X 2 person and time. nausea and vomiting has decreased Patient denies pain at this time. 15:51 Reassessment: Patient appears in no apparent distress at this time. Patient and/or jd3 family updated on plan of care and expected duration. Pain level reassessed. Patient is alert, oriented x 3, equal unlabored respirations, skin warm/dry/pink. resting in bed. pt answering orientation questions properly at this time. family reported they were leaving to get food and eat then will be back to pt's bedside Patient states symptoms have improved. Neuro: Barragan Agitation-Sedation Scale (RASS): 0 - Alert and Calm Level of Consciousness is awake, alert, obeys commands, Oriented to person, place, time, situation. 16:55 Reassessment: Patient appears in no apparent distress at this time. Patient and/or jd3 family updated on plan of care and expected duration. Pain level reassessed. Patient is alert, oriented x 3, equal unlabored respirations, skin warm/dry/pink. charting continued in [facility]. pt moved to ER hold status. Patient denies pain at this time. Patient states feeling better. Patient states symptoms have improved. Vital Signs: 12:55 BP 104 / 48; Pulse 180; Resp 30 S; Temp 104.0(O); Pulse Ox 100% on R/A; aa5 13:42 Weight 99.79 kg (R); iw 14:52 BP 110 / 55; Pulse 130; Resp 27; Temp 99.8(O); Pulse Ox 100% on R/A; jd3 15:52 BP 110 / 46; Pulse 117; Resp 23 S; Pulse Ox 100% on R/A; jd3 16:56 BP 99 / 57; Pulse 99; Resp 20; Pulse Ox 100% on R/A; Pain 0/10; jd3 ED Course: 12:45 Patient arrived in ED. as 13:02 Arm band placed on Patient placed in an exam room, on a stretcher. aa5 13:03 [facility] kb 13:03 Jenn Xavier MD is Attending Physician. kb 13:10 Triage completed. aa5 13:18 Inserted saline lock: 20 gauge in left antecubital area, using aseptic technique. Blood iw collected. 13:20 Patient has correct armband on for positive identification. Placed in gown. Bed in low jd3 position. Call light in reach. Side rails up X2. Client placed on continuous cardiac and pulse oximetry monitoring. NIBP monitoring applied. monitoring manager on. Pulse ox on. NIBP on. 13:20 Inserted saline lock: 20 gauge in right antecubital area, using aseptic technique. jd3 Blood collected. 13:20 EKG done, by ED staff, reviewed by Jazmin ÁLVAREZ. jd3 13:34 Vipul Leavitt RN is Primary Nurse. jd3 13:46 Pelvis Complete In Process Unspecified. EDMS 14:14 Chest Single View XRAY In Process Unspecified. EDMS 14:24 CT Head Brain wo Cont In Process Unspecified. EDMS 14:40 CT Abd/Pelvis - IV Contrast Only In Process Unspecified. EDMS 14:41 CT Chest For PE Angio In Process Unspecified. EDMS 15:17 Mathieu Vogt MD is Hospitalizing Provider. kb 16:56 No provider procedures requiring assistance completed. Patient admitted, IV remains in jd3 place. Administered Medications: 13:25 Drug: Zofran (Ondansetron) 4 mg Route: IVP; Site: left antecubital; iw 14:25 Follow up: Response: No adverse reaction jd3 13:34 Not Given (Physician Discretion): Acetaminophen 1000 mg PO once jd3 13:48 Drug: NS 0.9% (30 ml/kg) 30 ml/kg Route: IV; Rate: bolus; Site: left antecubital; jd3 15:28 Follow up: Response: No adverse reaction; IV Status: Completed infusion; IV Intake: jd3 1500ml 13:50 Drug: Tylenol Suppository 650 mg Route: KS; jd3 14:47 Follow up: Response: No adverse reaction jd3 14:47 Drug: Rocephin (cefTRIAXone) 1 grams Route: IV; Rate: calculated rate; Site: right jd3 antecubital; 15:00 Follow up: Response: No adverse reaction; IV Status: Completed infusion; IV Intake: 69sgpz3 15:28 Drug: Flagyl (metroNIDAZOLE) 500 mg Volume: 100 ml; Route: IVPB; Rate: 200 ml/hr; jd3 Infused Over: 30 mins; Site: right antecubital; 15:59 Follow up: Response: No adverse reaction; IV Status: Completed infusion; IV Intake: jd3 100ml Medication: 14:25 VIS not applicable for this client. jd3 Intake: 15:00 IV: 50ml; Total: 50ml. jd3 15:28 IV: 1500ml; Total: 1550ml. jd3 15:59 IV: 100ml; Total: 1650ml. jd3 Outcome: 15:17 Decision to Hospitalize by Provider. kb 16:56 Admitted to ER Hold. Please see [facility] for further documentation. jd3 16:56 Condition: stable 16:56 Instructed on the need for admit, Demonstrated understanding of instructions. 18:24 Patient left the ED. jd3 Signatures: Dispatcher [employer] EDMS Jazmin Philip, FITTER MECHANIC-C FITTER MECHANIC-Britt Honeycutt, Ivon, RN RN iw Kaleb Dionicio em1 Meme Castro, RN RN aa5 Vipul Leavitt RN RN jd3 Corrections: (The following items were deleted from the chart) 13:11 12:55 Chief complaint: Pt's father states "she just had a baby yesterday and just aa5 started not feeling good today". Pt vomited once in ER lobby, pt's father states "she was just getting confused in the lobby". 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 Pt is alert and oriented x person,place, time, and situation but drowsy. aa5 13:43 13:33 56.25 kg Reported; em1 iw 14:20 14:14 Reassessment: clarita otto
--- NOTE | 2021-10-07 15:18 | EDPHYS ---
Physician Documentation [facility] Name: Yessica Polk Age: 20 yrs Sex: Female : 2000 Arrival Date: 10/07/2021 Time: 12:45 Bed 6 Private MD: ED Physician Jenn Xavier HPI: 10/08 00:12 This 20 yrs old Female presents to ER via Wheelchair with complaints of Post kb Problem - fever, vag 10/05. 00:12 The patient reports fever, that was measured at 104 degrees Fahrenheit, with an kb emergency department temperature of 104 degrees Fahrenheit. Onset: The symptoms/episode began/occurred this morning. Modifying factors: there are no obvious modifying factors. Associated signs and symptoms: Pertinent positives: altered mental status,\\E\\ vomiting. Severity of symptoms: At their worst the symptoms were severe in the emergency department the symptoms are unchanged. The patient has not experienced similar symptoms in the past. The patient has been recently seen by a physician:. Patient had vaginal delivery on October 05 without incident. Patient was discharged yesterday. This morning patient reported she was not feeling well to her father. Father states that patient became confused on things throughout the day then started running fever just prior to arrival. Patient began vomiting in triage. Patient denies any pain.. 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 - Social history:: Smoking status: unknown. ROS: 14:47 Respiratory: Negative for shortness of breath, cough, wheezing, and pleuritic chest kb pain. 14:47 Constitutional: Positive for fever, malaise, Negative for body aches, chills, fatigue, poor PO intake, weight loss. 14:47 Neuro: Positive for altered mental status. 14:47 All other systems are negative. 10/08 00:12 Abdomen/GI: Positive for nausea and vomiting, Negative for abdominal pain. kb Exam: 10/07 15:43 Head/Face: Normocephalic, atraumatic. ENT: Moist Mucous membranes Cardiovascular: kb Regular rate and rhythm with a normal S1 and S2. No gallops, murmurs, or rubs. No pulse deficits. Respiratory: Respirations even and unlabored. No increased work of breathing. Talking in full sentences Abdomen/GI: Soft, non-tender. No distention Back: No spinal tenderness. No costovertebral tenderness. Full range of motion. Skin: Warm, dry with normal turgor. Normal color. MS/ Extremity: Pulses equal, no cyanosis. Neurovascular intact. Full, normal range of motion. Constitutional: The patient appears alert, awake, lethargic. ECG was reviewed by the Attending Physician. : Pelvic Exam: External exam: sutures in place with no redness, swelling, drainage. Mild-moderate discharge, bloody. Neuro: Orientation: to person, place, time, confused about situation. Vital Signs: 12:55 BP 104 / 48; Pulse 180; Resp 30 S; Temp 104.0(O); Pulse Ox 100% on R/A; aa5 13:42 Weight 99.79 kg (R); iw 14:52 BP 110 / 55; Pulse 130; Resp 27; Temp 99.8(O); Pulse Ox 100% on R/A; jd3 15:52 BP 110 / 46; Pulse 117; Resp 23 S; Pulse Ox 100% on R/A; jd3 16:56 BP 99 / 57; Pulse 99; Resp 20; Pulse Ox 100% on R/A; Pain 0/10; jd3 MDM: 13:04 Patient medically screened. kb 14:48 Data reviewed: vital signs, nurses notes. Data interpreted: Pulse oximetry: on room air kb is 100 %. Interpretation: normal. 14:50 ED course: Criteria for severe sepsis met at 1413. Source (A): UTI; SIRS criteria (B): kb AMS, HR, Temp; End Organ Failure (C): Lactate 3.5. Sepsis reevaluation complete. 14:51 Counseling: I had a detailed discussion with the patient and/or guardian regarding: the kb historical points, exam findings, and any diagnostic results supporting the discharge/admit diagnosis, lab results, radiology results, the need for further work-up and treatment in the hospital. 10/08 00:16 Physician consultation: Mathieu Vogt MD regarding admission, to the medical/surgical kb unit. patient's condition. 00:17 Physician consultation: Pop Jaydon MD regarding consult, patient's condition, and kb will see patient in inpatient room. 10/07 13:07 Order name: Blood Culture Adult (2) kb 10/07 13:07 Order name: CBC with Diff; Complete Time: 13:42 kb 10/07 13:07 Order name: CMP; Complete Time: 13:56 kb 10/07 13:07 Order name: Lactate; Complete Time: 13:59 kb 10/07 13:07 Order name: Protime (+inr); Complete Time: 13:53 kb 10/07 13:07 Order name: Ptt, Activated; Complete Time: 13:53 kb 10/07 13:07 Order name: Urine Microscopic Only; Complete Time: 14:16 kb 10/07 13:11 Order name: Flu; Complete Time: 14:38 kb 10/07 13:11 Order name: COVID-19 SARS RT PCR (Document "Date of Onset" if Symptomatic); Complete kb Time: 14:57 10/07 13:28 Order name: Glucose, Ancillary Testing; Complete Time: 13:35 EDMS 10/07 13:40 Order name: UDS; Complete Time: 14:26 kb 10/07 13:59 Order name: Urine Dipstick-Ancillary; Complete Time: 14:01 EDMS 10/07 15:31 Order name: CBC with Automated Diff EDMS 10/07 15:31 Order name: CBC with Automated Diff EDMS 10/07 13:07 Order name: Chest Single View XRAY; Complete Time: 14:26 kb 10/07 13:24 Order name: Pelvis Complete; Complete Time: 14:16 EDMS 10/07 13:40 Order name: CT Head Brain wo Cont; Complete Time: 14:38 kb 10/07 13:40 Order name: CT Abd/Pelvis - IV Contrast Only; Complete Time: 15:01 kb 10/07 13:49 Order name: CT Chest For PE Angio; Complete Time: 14:57 kb 10/07 15:31 Order name: CBC with Automated Diff EDMS 10/07 15:31 Order name: Comprehensive Metabolic Panel EDMS 10/07 15:31 Order name: Comprehensive Metabolic Panel EDMS 10/07 15:31 Order name: Comprehensive Metabolic Panel EDMS 10/07 15:31 Order name: Magnesium EDMS 10/07 15:31 Order name: Magnesium EDMS 10/07 15:31 Order name: Phosphorus EDMS 10/07 15:31 Order name: Phosphorus EDMS 10/07 16:38 Order name: Lactate Sepsis 2 HR Follow-up; Complete Time: 16:39 EDMS 10/07 13:07 Order name: Accucheck; Complete Time: 13:33 kb 10/07 13:07 Order name: Cardiac monitoring; Complete Time: 13:33 kb 10/07 13:07 Order name: EKG - Nurse/Tech; Complete Time: 14:12 kb 10/07 13:07 Order name: IV Saline Lock - Large Bore; Complete Time: 13:33 kb 10/07 13:07 Order name: Labs collected and sent; Complete Time: 13:33 kb 10/07 13:07 Order name: O2 Per Protocol; Complete Time: 13:33 kb 10/07 13:07 Order name: O2 Sat Monitoring; Complete Time: 13:33 kb 10/07 13:07 Order name: Urine Dipstick-Ancillary (obtain specimen); Complete Time: 14:02 kb 10/07 14:47 Order name: Vital Signs; Complete Time: 14:52 kb 10/07 15:31 Order name: CONS Physician Consult EDMS 10/07 15:31 Order name: NPO EDMS EC/21 15:43 Rate is 131 beats/min. Rhythm is regular. QRS Jean is Normal. NE interval is normal at kb 128 msec. QRS interval is normal at 74 msec. QT interval is normal at 440 msec. Administered Medications: 13:25 Drug: Zofran (Ondansetron) 4 mg Route: IVP; Site: left antecubital; iw 14:25 Follow up: Response: No adverse reaction jd3 13:34 Not Given (Physician Discretion): Acetaminophen 1000 mg PO once jd3 13:48 Drug: NS 0.9% (30 ml/kg) 30 ml/kg Route: IV; Rate: bolus; Site: left antecubital; jd3 15:28 Follow up: Response: No adverse reaction; IV Status: Completed infusion; IV Intake: jd3 1500ml 13:50 Drug: Tylenol Suppository 650 mg Route: NE; jd3 14:47 Follow up: Response: No adverse reaction jd3 14:47 Drug: Rocephin (cefTRIAXone) 1 grams Route: IV; Rate: calculated rate; Site: right jd3 antecubital; 15:00 Follow up: Response: No adverse reaction; IV Status: Completed infusion; IV Intake: 45hfyp1 15:28 Drug: Flagyl (metroNIDAZOLE) 500 mg Volume: 100 ml; Route: IVPB; Rate: 200 ml/hr; jd3 Infused Over: 30 mins; Site: right antecubital; 15:59 Follow up: Response: No adverse reaction; IV Status: Completed infusion; IV Intake: jd3 100ml Disposition: 19:13 STAFF ATTESTATION: The patient's history, exam findings, diagnostics and a summary of sd2 any interventions or procedures was reviewed in detail with the ED KENNY. I confirm the diagnosis as documented by the KENNY and I agree with the care plan articulated in the disposition section with regards to our discussion of the patient's case. Jenn Xavier MD. Disposition Summary: 10/07/21 15:17 Hospitalization Ordered Hospitalization Status: Inpatient Admission kb Provider: Mathieu Vogt Condition: Fair kb Problem: new kb Symptoms: are unchanged kb Bed/Room Type: Standard kb [facility]10[facility]07[facility]21 17:58) Room Assignment: [facility]-(10/07/21 18:14) ds4 Diagnosis - Severe sepsis without septic shock kb - UTI/ Urinary tract infection, site not specified kb Forms: - Medication Reconciliation Form kb - SBAR form kb Signatures: Dispatcher [employer] EDJazmin Lara FNP-C SHUTTLE FITTING SUPERVISOR-CkIvon Dee, RN RN Meme Burrows RN RN [email or web address] Davi Kemp ds4 Vipul Leavitt RN RN jd3 Botello, Elizabeth eb Dunlop, Stephanie, MD MD sd2 Corrections: (The following items were deleted from the chart) 13:24 13:08 Transvaginal Ob+US.RAD.BRZ ordered. EDVT EDVT 17:58 15:17 Telemetry/MedSurg (Inpatient) kb eb 17:58 15:17 kb eb 18:14 17:58 270- eb ds4
--- NOTE | 2021-10-07 15:27 | P.HP ---
Certification for Inpatient Patient admitted to: Inpatient With expected LOS: >2 Midnights Patient will require the following post-hospital care: None Practitioner: I am a practitioner with admitting privileges, knowledge of patient current condition, hospital course, and medical plan of care. Services: Services provided to patient in accordance with Admission requirements found in Title 42 Section 412.3 of the Code of Federal Regulations Patient History Date of Service: 10/07/21 Reason for admission: Severe Sepsis History of Present Illness: Ms. Yessica Polk is a 20 year old female who has no reported past medical history who presents to the [facility] Emergency Department for fever and altered mental status. On 10/05/2021, she underwent a vaginal delivery with Dr. Interiano. I am unable to review the medical records from this delivery, but per ED staff the procedure was complicated by a vulvar hematoma, which required suturing. It appears that her stepfather brought her in to the emergency department due to altered mental status and fever. At the time my evaluation, she was alert and oriented x4 to person, place, time, and situation. She states that she does not recall the events leading up to her hospitalization. She states that, over the last 1-2 days, she has been experiencing chills and right flank pain. She reports taking ibuprofen earlier today. She denies any obvious inciting or alleviating factors. She grades her flank pain moderate in severity. On review of systems, she denies any headaches, dizziness, syncope, weakness, chest pain, palpitations, shortness of breath, wheezing, cough, abdominal pain, nausea/vomiting, diarrhea, constipation, hematochezia, melena, dysuria, hematuria, myalgia, or any other symptoms. She presented to the Emergency Department for further evaluation. Upon presentation, her vital signs were notable for a temperature of 104.0 F, a heart rate of 180 bpm, and a respiratory rate of 30 breaths/min. Her laboratory studies were notable for a hemoglobin of 8.9 and an initial lactic acid of 3.5. Urinalysis revealed 3+ blood, trace leukocyte esterase, >50 RBCs, 21-50 WBCs, > 50 bacteria, 3+ protein. Blood cultures x 2 were obtained. EKG revealed sinus rhythm without STEMI criteria. Chest x-ray revealed, "no acute cardiopulmonary process." Pelvic ultrasound revealed, "homogeneous endometrial stripe 6 mm in thickness. No retained products of conception identified." CT abdomen/pelvis revealed, "contrast enhanced CT abdomen and pelvis showing no acute or emergent finding." CT head revealed, "negative non-contrast CT head examination." CT chest angiogram revealed, "motion degraded study showing no identifiable pulmonary emboli. No pneumonia or acute lung parenchymal process. No cardiomegaly or pericardial effusion." Prosthetist was consulted in the Emergency Department, and recommendations are pending. In the Emergency Department, she was given ondansetron, acetaminophen, ceftriaxone, metronidazole, and 30 mL/kg Normal Saline. She was admitted to the General Internal Medicine service for further evaluation. Allergies No Known Drug Allergies Allergy (Verified 07/13/15 07:55) Unknown Home Medications: NK [No Home Meds] 10/05/21 - Past Medical/Surgical History Diabetic: No Past Medical History: Patient denies medical history Past Surgical History: Patient denies surgical history - Family History Brother -: Diabetes - Social History Smoking Status: Never smoker Alcohol use: No CD- Drugs: No Caffeine use: No Review of Systems 10-point ROS is otherwise unremarkable General: Fever, Chills, Sweats, Malaise Eyes: Unremarkable ENT: Unremarkable Respiratory: Unremarkable Cardiovascular: Unremarkable Gastrointestinal: Unremarkable Genitourinary: Unremarkable Musculoskeletal: Back Pain (right flank) Integumentary: Unremarkable Neurological: Unremarkable Physical Examination - Vital Signs Temperature: 99.8 F Blood Pressure: 99/57 Pulse: 99 Respirations: 20 Pulse Ox (%): 100 - Physical Exam General: Alert, In no apparent distress, Oriented x3 HEENT: Atraumatic, PERRLA, Mucous membr. moist/pink, EOMI, Sclerae nonicteric Neck: Supple, JVD not distended Respiratory: Clear to auscultation bilaterally, Normal air movement Cardiovascular: No edema, Regular rate/rhythm, Normal S1 S2, No gallops, No rubs, No murmurs Gastrointestinal: Normal bowel sounds, Soft and benign, Non-distended, No tenderness, No rebound, No guarding Musculoskeletal: No clubbing Integumentary: No rashes Neurological: Normal speech, Cranial nerves 3-12 intact, Normal affect External genitalia: Deferred (per ED provider, vulvar hematoma site was clean, dry, and intact) - Studies Laboratory Data (last 24 hrs) 10/07/21 13:18: PT 10.6, INR 0.96, APTT 24.7 10/07/21 13:18: Sodium 136, Potassium 4.1, BUN 9, Creatinine 0.88, Glucose 125 H, Total Bilirubin 0.7, AST 35, ALT 25, Alkaline Phosphatase 119 H 10/07/21 13:18: WBC 7.30 D, Hgb 8.9 L, Hct 26.5 L D, Plt Count 214 D Microbiology Data (last 24 hrs): 10/07/21 13:27 Nasopharnyx Influenza Type A Antigen Screen - Final 10/07/21 13:27 Nasopharnyx Influenza Type B Antigen Screen - Final Assessment and Plan - Plan # Severe Sepsis likely secondary to Urinary Tract Infection vs Infected Vulvar Hematoma? # Reported Acute Toxic Metabolic Encephalopathy likely due to above (now improved) She meets sepsis criteria based on temperature > 100.9 F, HR > 90 bpm, and RR > 20 breaths/min, and the suspected source is a UTI +/- infected hematoma. Severe sepsis is suspected due to concern for tissue hypoperfusion/organ dysfunction based on lactic acid > 2 mmol/L. - Prosthetist consulted and Dr. Interiano notified by FRANKLIN Philip - recommendations appreciated - Sepsis order set was initiated in ED - Lactate trend was 3.5 -> 1.9 - UA = 3+ blood, trace leukocyte esterase, >50 RBCs, 21-50 WBCs, >50 bacteria, 3+ protein - CT A/P without evidence of pyelonephritis - Blood cultures drawn before antibiotics were given - Broad spectrum antibiotics started: Ceftriaxone + Metronidazole - Switched to piperacillin-tazobactam - In regards to fluids: - 30 mL/kg of IV Normal Saline was given based on patient's actual body weight # Suspected Acute Blood Loss Anemia likely secondary to recent Spontaneous Vaginal Delivery - No evidence of active bleeding - Monitor H&H - Transfuse for Hgb < 7.0 Mathieu Vogt M.D. Discharge Plan: Home Plan to discharge in: Greater than 2 days - Advance Directives Does patient have a Living Will: No Does patient have a Durable POA for Healthcare: No - Code Status/Comfort Care Code Status Assessed: Yes Code Status: Full Code
[2021-10-07] MEDS ORDERED: METRONIDAZOLE 500mg IVPB 500 MG/100 ML BAG IV ONE (15:30)
[2021-10-07] MEDS: Ringers Lactate 1,000 ML IV SCH (16:54)
[2021-10-07] MEDS ORDERED: METRONIDAZOLE 500mg IVPB 500 MG/100 ML BAG IV SCH (17:00)
[2021-10-07] MEDS ORDERED: Ringers Lactate 1,000 ML IV ONE (17:00)
[2021-10-07 17:16] VITALS: O2SAT 100; BMI 22.6
[2021-10-07] MEDS ORDERED: ACETAMINOPHEN 500 MG TAB PO PRN (21:39)
[2021-10-08] MEDS ORDERED: PIPERACIL/TAZO 3.375 GM VIAL IV ONE (00:30)
[2021-10-08] MEDS ORDERED: NA CHLORIDE 0.9% 100 ML ONE (00:33)
[2021-10-08] MEDS: Ringers Lactate 1,000 ML IV SCH ×2 (01:08→16:36)
[2021-10-08] MEDS: PIPER TAZO 3.375 GM in NA CHLORIDE 0.9% 100 ML IV SCH ×3 (01:08→17:00)
[2021-10-08 04:40] LABS: Absolute Lymphocytes (CBC) 1.5 K/uL (0.7-4.9); Hematocrit 21.1 % (36.0-45.0); Lymphocytes % 19.2 % (15.3-44.8); MCV 79.5 fL (80-100); MPV 7.4 fL (7.6-11.3); RBC Red Blood Cell Count 2.65 M/uL (3.86-4.86)
[2021-10-08 05:07] LABS: Albumin 1.9 g/dL (3.4-5.0); Bilirubin Total 0.5 mg/dL (0.2-1.0); Magnesium 2.4 mg/dL (1.8-2.4); Phosphorus 3.2 mg/dL (2.5-4.9); Potassium 3.7 mmol/L (3.5-5.1); Protein, Total 5.1 g/dL (6.4-8.2)
[2021-10-08] MEDS ORDERED: NA CHLORIDE 0.9% 500 ML ONE (05:49)
--- NOTE | 2021-10-08 07:20 | PREOPHP ---
Date of Admission: 10/07/2021 History Of Present Illness: A 20-year-old female who delivered and had a right labia majora hematoma and a first-degree laceration at the posterior fourchette. Hematoma was evacuated and oversewn. Th e patient was stable the rest of her hospital course. Admission hematocrit was 31, 19,000 white coun t. The patient went home and then was brought back to the emergency room within the next 48 hours wi th complaint of fever and altered mental state. Evaluation there demonstrated an admission temperatu re of 104 and pulse of 180. Ultrasound of the pelvis and CAT scan of the abdomen and pelvis were non revealing. No hematoma seen. No retained products seen. The patient was admitted, placed on antibi otics. She is on Zosyn 3.375 g q.8 hours. She was admitted to hospitalist with me as ergonomics consultant. I was notified this morning that the hemoglobin had dropped to 7, pulses which were elevated on admiss ion have been normal, but I came out to evaluate the patient. Her conjunctivae are very pale. She i s quite alert. She is in no pain. She has to go to the restroom before the exam. The pelvic exam s howed everything was stable. I did an intravaginal exam checking for a hematoma in the area of the p udendal vessels, but found nothing, no pain whatsoever. Physical Examination: HEENT: Clear. Pupils equal, round, and reactive to light and accommodation. Conjunctivae very pale . Chest and Lungs: Clear. Breasts: Not examined. Abdomen: Soft. There is no CVA or flank tenderness. Extremities: Clear. She has no signs of blood clots in her legs. She is not coughing. She does no t have a sore throat. She does not have breast engorgement or mastitis. She is being treated for an infection. To this point, it has been ruled a urinary tract infection. I do not think the site of infection is quite clear. I have ordered a unit of blood to be given, as the blood count now is in I think a dangerous range and if it drops any lower, we could have a proble m plus this will help her with healing. The patient though appears alert, stable, says she is in no pain whatsoever. After the blood, we will continue to monitor her and see how she responds, but righ t now quite stable. Family history of course has not changed nor has medical history. Diagnosis at this point is possible pyelonephritis, but that is not at all certain but that is probably the best working diagnosis. JACKIE/SUNNY Voice ID: [id number]
--- NOTE | 2021-10-08 08:08 | EKG ---
Test Date: 2021-10-07 Test Time: 14:12:03 Tool Technician: MIKE MEASUREMENT RESULTS: Intervals: Rate: 131 TX: 128 QRSD: 74 QT: 298 QTc: 440 [place]: P: 67 TX: 128 QRS: 62 T: 33 INTERPRETIVE STATEMENTS: Sinus tachycardia ST abnormality, possible digitalis effect Abnormal ECG No previous ECG available for comparison Electronically Signed On 10-08-21 08:06:23 CDT by Santos Aparicio
[2021-10-08] MEDS ORDERED: ENOXAPARIN 40 MG/0.4 ML SQ SCH (09:00)
[2021-10-08] MEDS ORDERED: CEFTRIAXONE 1,000 MG in NA CHLORIDE 0.9% 50 ML IVPB SCH (09:00)
[2021-10-08 11:09] LABS: Absolute Lymphocytes (CBC) 1.5 K/uL (0.7-4.9); Hematocrit 26.5 % (36.0-45.0); Lymphocytes % 14.9 % (15.3-44.8); MCV 83.7 fL (80-100); MPV 7.7 fL (7.6-11.3); RBC Red Blood Cell Count 3.16 M/uL (3.86-4.86)
--- NOTE | 2021-10-08 14:44 | PN ---
She has had 1 unit of blood. Her hemoglobin is now almost 9. She continues to feel no pain. She johnson s had no fever. She is quite alert. She is very hungry. We will let her get up and walk around the halls. If she walks around the halls without any problems, we will let her eat. The plan is to stephy ch her today either 5 a.m. H and H. If her H and H are stable and she is afebrile, we will let her g o home tomorrow. JACKIE/SUNNY Voice ID: [id number] Report ID: [id number]
[2021-10-09] MEDS: PIPER TAZO 3.375 GM in NA CHLORIDE 0.9% 100 ML IV SCH (00:03)
[2021-10-09 04:11] VITALS: BP 121/54; TEMP 96.9
[2021-10-09] MEDS: Ringers Lactate 1,000 ML IV SCH (05:26)
[2021-10-09 05:49] LABS: Absolute Lymphocytes (CBC) 1.9 K/uL (0.7-4.9); Hematocrit 25.6 % (36.0-45.0); Lymphocytes % 17.5 % (15.3-44.8); MPV 7.5 fL (7.6-11.3); RBC Red Blood Cell Count 3.05 M/uL (3.86-4.86)
[2021-10-09 06:04] LABS: Albumin 1.9 g/dL (3.4-5.0); Bilirubin Total 0.5 mg/dL (0.2-1.0); Potassium 3.8 mmol/L (3.5-5.1); Protein, Total 5.3 g/dL (6.4-8.2)
--- NOTE | 2021-10-09 08:11 | DS ---
Hospital Course: Yessica Polk looks great today, ambulating, voiding. No pain. No bleeding. Her H and H are stable. She wants to go home and I see no reason why she should not. We will send her ho me with Augmentin 500 mg twice a day for 5 more days. She is to report any temperature elevation of 100 degrees or greater, severe pain, heavy bleeding, or any other type of abnormalities. She knows t o get on vitamins and iron. Diagnosis at this point was significant anemia with blood trans fusion, probable combination of blood loss from hematoma which was evacuated, and normal lochia. She came in with a low blood count to begin with when she delivered. The fever, possibly pyelonephritis , although that is somewhat questionable. Urine on admission did not look that bad. She had no CVA or flank tenderness when I examined her. No sore throat. No breast engorgement. No leg discomfort. No signs of endometriosis, but we will continue, so at this point I would almost classified as a fe dia of unknown origin, but it is completely resolved. Now dismissed. JACKIE/RADHAL Voice ID: [id number] Report ID: [id number]
--- NOTE | 2021-10-09 08:38 | P.DS ---
Discharge Date: 10/09/21 Disposition: ROUTINE DISCHARGE Discharge Condition: GOOD Reason for Admission: Severe Sepsis Brief History of Present Illness: Ms. Yessica Polk is a 20 year old female who has no reported past medical history who presents to the [facility] Emergency Department for fever and altered mental status. On 10/05/2021, she underwent a vaginal delivery with Dr. Interiano. I am unable to review the medical records from this delivery, but per ED staff the procedure was complicated by a vulvar hematoma, which required suturing. It appears that her stepfather brought her in to the emergency department due to altered mental status and fever. At the time my evaluation, she was alert and oriented x4 to person, place, time, and situation. She states that she does not recall the events leading up to her hospitalization. She states that, over the last 1-2 days, she has been experiencing chills and right flank pain. She reports taking ibuprofen earlier today. She denies any obvious inciting or alleviating factors. She grades her flank pain moderate in severity. On review of systems, she denies any headaches, dizziness, syncope, weakness, chest pain, palpitations, shortness of breath, wheezing, cough, abdominal pain, nausea/vomiting, diarrhea, constipation, hematochezia, melena, dysuria, hematuria, myalgia, or any other symptoms. She presented to the Emergency Department for further evaluation. Upon presentation, her vital signs were notable for a temperature of 104.0 F, a heart rate of 180 bpm, and a respiratory rate of 30 breaths/min. Her laboratory studies were notable for a hemoglobin of 8.9 and an initial lactic acid of 3.5. Urinalysis revealed 3+ blood, trace leukocyte esterase, >50 RBCs, 21-50 WBCs, > 50 bacteria, 3+ protein. Blood cultures x 2 were obtained. EKG revealed sinus rhythm without STEMI criteria. Chest x-ray revealed, "no acute cardiopulmonary process." Pelvic ultrasound revealed, "homogeneous endometrial stripe 6 mm in thickness. No retained products of conception identified." CT abdomen/pelvis revealed, "contrast enhanced CT abdomen and pelvis showing no acute or emergent finding." CT head revealed, "negative non-contrast CT head examination." CT chest angiogram revealed, "motion degraded study showing no identifiable pulmonary emboli. No pneumonia or acute lung parenchymal process. No cardiomegaly or pericardial effusion." Senior Online Marketing Manager was consulted in the Emergency Department, and recommendations are pending. In the Emergency Department, she was given ondansetron, acetaminophen, ceftriaxone, metronidazole, and 30 mL/kg Normal Saline. She was admitted to the General Internal Medicine service for further evaluation. Hospital Course: Patient was transfused 1 unit of packed red blood cells. Her hemoglobin is stable. Patient's cultures have been negative. She is afebrile. Patient will follow-up with OB in 1 week. OB has prescribed her Augmentin for 5 more days at discharge. Vital Signs/Physical Exam: Temp Pulse Resp BP Pulse Ox 96.9 F 80 17 121/54 L 98 10/09/21 04:00 10/09/21 04:00 10/09/21 04:00 10/09/21 04:00 10/09/21 04:00 General: Alert, In no apparent distress, Oriented x3 Laboratory Data at Discharge: WBC 10.70 K/uL (4.3-10.9) 10/09/21 05:20 Hgb 8.4 g/dL (12.0-15.0) L 10/09/21 05:20 Hct 25.6 % (36.0-45.0) L 10/09/21 05:20 Plt Count 259 K/uL (152-406) 10/09/21 05:20 PT 10.6 SECONDS (9.5-12.5) 10/07/21 13:18 INR 0.96 10/07/21 13:18 APTT 24.7 SECONDS (24.3-36.9) 10/07/21 13:18 Sodium 140 mmol/L (136-145) 10/09/21 05:20 Potassium 3.8 mmol/L (3.5-5.1) 10/09/21 05:20 BUN 11 mg/dL (7-18) 10/09/21 05:20 Creatinine 0.53 mg/dL (0.55-1.3) L 10/09/21 05:20 Glucose 87 mg/dL (74-106) 10/09/21 05:20 Phosphorus 3.2 mg/dL (2.5-4.9) 10/08/21 04:23 Magnesium 2.4 mg/dL (1.8-2.4) 10/08/21 04:23 Total Bilirubin 0.5 mg/dL (0.2-1.0) 10/09/21 05:20 AST 41 U/L (15-37) H 10/09/21 05:20 ALT 37 U/L (12-78) 10/09/21 05:20 Alkaline Phosphatase 98 U/L (45-117) 10/09/21 05:20 Home Medications: Amoxicillin/Potassium Clav [Augmentin 500-125 Tablet] 1 each PO BID #14 10/09/21 New Medications: Amoxicillin/Potassium Clav [Augmentin 500-125 Tablet] 1 each PO BID #14 Physician Discharge Instructions: -DC IV and DC home -Follow-up with PCP in 1 to 2 weeks -Follow-up with SOFTWARE APPLICATIONS ARCHITECT in 1 to 2 weeks -Please call Dr. Gomez at [phone] if any questions regarding hospital stay -Please call nursing station at [phone] if any nursing or medication questions -Return to the emergency room if symptoms worsen DC Diet: Regular Activity: Fall precautions Followup: Sherie Interiano MD [Primary Care Provider] - Time spent managing pt's care (in minutes): 25
--- NOTE | 2021-10-09 08:39 | P.PN ---
Subjective Date of Service: 10/08/21 Subjective: No new changes, No C/O voiced, Improving Review of Systems 10-point ROS is otherwise unremarkable Physical Examination - Vital Signs Temperature: 96.9 F Blood Pressure: 121/54 Pulse: 80 Respirations: 17 Pulse Ox (%): 98 - Physical Exam General: Alert, In no apparent distress HEENT: Atraumatic, PERRLA, EOMI Neck: Supple, JVD not distended Respiratory: Clear to auscultation bilaterally, Normal air movement Cardiovascular: Regular rate/rhythm, Normal S1 S2 Gastrointestinal: Normal bowel sounds, No tenderness Musculoskeletal: No tenderness Integumentary: No rashes Neurological: Normal speech, Normal tone, Normal affect Lymphatics: No axilla or inguinal lymphadenopathy - Studies Medications List Reviewed: Yes Assessment & Plan - Problems (Diagnosis) (1) UTI (urinary tract infection) Current Visit: Yes Status: Acute (2) Anemia, blood loss Current Visit: No Status: Acute - Plan Plan: 1. Continue with antibiotics 2. Transfused 2 units of packed red blood cells 3. Additional recommendations per OB. - Advance Directives Does patient have a Living Will: No Does patient have a Durable POA for Healthcare: No - Code Status/Comfort Care Code Status: Full Code
== END 2021-10-09 10:05 | disposition home or self-care (01) | DRG 776 ==
LOC: ER 12:44 → ERHOLD 15:26 → 2ND-WC 18:12
PROVIDERS: ADMIT Internal Medicine; ATTEND Internal Medicine
PROC: 30233N1 Transfusion of Nonautologous Red Blood Cells into Peripheral Vein, Percutaneous Approach (ICD-10-PCS; principal; 2021-10-08)
DX: O98.83 Other maternal infectious and parasitic diseases complicating the puerperium (principal); A41.9 Sepsis, unspecified organism; G92.8 Other toxic encephalopathy; O86.20 Urinary tract infection following delivery, unspecified; N39.0 Urinary tract infection, site not specified; D62 Acute posthemorrhagic anemia; O90.81 Anemia of the puerperium; Z20.822 Contact with and (suspected) exposure to COVID-19
CPT/HCPCS: 36415; 70450; 71045; 71275; 74177; 76856; 80053; 80307; 81003; 81015; 82947; 83605; 83735; 84100; 85025; 85610; 85730; 86850; 86900; 86901; 87040; 87804; 93005; 99285; J1650; J2405; J2543; J7030; J7040; J7120; P9016; Q9967; U0003